=== PATIENT | female | born 1945 | race Caucasian/White ===

== ENCOUNTER 2020-10-22 04:13 | Inpatient (IN) | payer MEDICARE, SELFPAY ==
[2020-10-22] VITALS (13 sets, daily range): BP systolic 144–169; BP diastolic 86–93; PULSE 72–90; RESP 16–22; TEMP 36.5–37.2; O2SAT 92–95; BMI 25.8
--- NOTE | 2020-10-22 | DI.RAD.S_ITS ---
PROCEDURE: XR GASTROGRAFIN CHALLENGE COMPARISON: [facility], CT, CT ABDOMEN PELVIS W CON, 10/22/2020, 4:38. CT abdomen/pelvis 10/22/20. INDICATIONS: SBO/diagnostic versus therapeutic FINDINGS: Water-soluble oral contrast was administered, and has transited through the small bowel into the colon. Excreted iodinated contrast is also present within the bladder, from CT scanning earlier same day. IMPRESSION: A complete small bowel obstruction is not seen. Please refer to the dedicated CT scanning report from earlier same day, which identifies evidence of carcinoid tumor. Dictated by: Mukund Quinones M.D. on 10/22/2020 at 15:00 Approved by: Mukund Quinones M.D. on 10/22/2020 at 15:02
--- NOTE | 2020-10-22 04:31 | DI.CT.S_ITS ---
PROCEDURE: CT ABDOMEN PELVIS W CON INDICATIONS: Left-sided abdominal pain TECHNIQUE: After the administration of intravenous contrast, axial sections acquired from the lung bases to the pubic symphysis. Coronal and sagittal reformats were performed. For radiation dose reduction, the following was used: automated exposure control, adjustment of mA and/or kV according to patient size. COMPARISON: None. FINDINGS: Image quality: Excellent. Lung bases: Unremarkable except for mild dependent atelectasis. Heart: No significant findings. ABDOMEN: Liver: The liver overall is unremarkable but there is a single hyperenhancing lesion involving the left lateral hepatic segment, measuring 1.1 cm in maximal diameter, and with asymmetric mild enlargement of the segmental hepatic artery leading to this structure. The appearance is not diagnostic of hemangioma. Atypical hemangioma could produce this appearance, however.. Gallbladder: 1.9 cm gallstone. No associated inflammation or biliary obstruction. Biliary ducts: Unremarkable. Pancreas: Unremarkable. Spleen: Unremarkable. Adrenal Glands: Unremarkable. Kidneys and Ureters: Unremarkable. Stomach and Bowel: Stomach and colon are unremarkable. The small bowel, however, shows an obstructive pattern with dilatation above 3 cm maximal diameter, the upper limits of normal for small bowel. This pattern extends from the abdomen into the pelvis. Please see below for discussion of etiology. Peritoneum: No abnormal intraperitoneal free air. There is, however, moderate ascites scattered within the peritoneal space in the [place] splenic and pre hepatic upper abdomen, within the pericolic gutters, and within the deep pelvis. No loculated fluid collection is found that would suggest abscess formation. Note is made of a mesenteric mass at the abdomen/pelvis junction containing calcification deep within the mesentery below the level of the bifurcation of the aorta. This is best seen centered on series 2, image 63. Mild adenopathy comprised of mildly enlarged and hyperenhancing nodes are seen above the level of the calcified mass, which measures up to 2.1 x 1.9 cm. The adjacent abnormal lymph nodes measure up to 1.4 cm. Note is made of a subtle but definite mass within the small bowel immediately posterior to the lower margin of the calcified mass, where a hyperenhancing lesion is present within the lumen, measuring up to 1.8 x 1.7 cm and representing the point of transition from small-bowel dilatation to relative collapse. Ventral Wall: No hernias. Abdominal Nodes: No retroperitoneal or mesenteric adenopathy by size criteria. Vessels: Aorta and inferior vena cava are normal in size. PELVIS: Pelvic Organs: Unremarkable. Bladder: Unremarkable. Pelvic Nodes: No enlarged lymph nodes. Miscellaneous: No evidence of peritoneal carcinomatosis... Bones: Unremarkable. IMPRESSION: 1. The findings discussed above are diagnostic of carcinoid tumor as the obstructive etiology for small bowel dilatation above the level of the mass within the small bowel loops noted as the point of transition from dilated to collapsed small bowel. 2. Metastatic adenopathy is present at the root of the small bowel mesentery anterior to the enteric mass, containing a small amount of calcification and with characteristic cicatrization of the immediate adjacent mesenteric vessels, producing a relative corrugated pattern of vessels at the mesentery involved. 3. Early adenopathy extends cephalad above the calcified mass, mild in overall severity but definite. The lymph nodes show no fatty hilum, and are hyperenhancing. 4. There is a hyperenhancing rounded mass within the left lateral hepatic segment, conceivably an atypical hemangioma but worrisome for representing a single identifiable hepatic metastatic lesion. Evaluating this mass with targeted single organ ultrasound is recommended. Further assessment by dedicated nuclear medicine scan with SPECT imaging may be warranted. Note: Findings discussed immediately with the consulting surgeon caring for the patient. Dictated by: Mukund Quinones M.D. on 10/22/2020 at 10:50 Approved by: Mukund Quinones M.D. on 10/22/2020 at 11:35
--- NOTE | 2020-10-22 04:33 | ED.GENADULT ---
HPI - General Adult General Chief complaint: Abdominal Pain Stated complaint: ABD Pain Time Seen by Provider: 10/22/20 04:24 Source: patient and EMS Mode of arrival: EMS History of Present Illness HPI narrative: Patient is a 75-year-old female here for evaluation of approximately 3 days of generalized abdominal discomfort. She has also had some nausea and some dry heaving last evening. No fevers. She denies any urinary symptoms. States she has had smaller stools than normal over the past couple days. She has not tried anything for the symptoms prior to arrival. She has had these exact same symptoms off and on over the past several years. Has never been evaluated for them in the past. Has been told that she has a ulcer. She is not on any medications for this. Her prior episodes of this discomfort have a really only lasted overnight and then have completely resolved however the discomfort that she is having now has been consistent for the past couple days. She could not sleep last evening because of the discomfort Related Data Allergies Allergy/AdvReac Type Severity Reaction Status Date / Time No Known Drug Allergies Allergy Verified 10/22/20 05:08 Review of Systems Constitutional Constitutional: Reports system reviewed and no additional complaints, except as documented Cardiovascular Cardiovascular: Reports system reviewed and no additional complaints, except as documented Respiratory Respiratory: Reports system reviewed and no additional complaints, except as documented Gastrointestinal Gastrointestinal: Reports as per HPI Genitourinary Genitourinary: Reports system reviewed and no additional complaints, except as documented Musculoskeletal Musculoskeletal: Reports system reviewed and no additional complaints, except as documented Integumentary/Breasts Skin/Breast: Reports system reviewed and no additional complaints, except as documented Neurologic Neurologic: Reports system reviewed and no additional complaints, except as documented Hematologic/Lymphatic On Anticoagulants: No Allergic/Immunologic Allergic/Immunologic: Reports system reviewed and no additional complaints, except as documented Patient History Medical History History of ectopic Hypertension Stomach ulcer Surgical History History of hysterectomy Hx of appendectomy Social History Smoking Status: Never smoker Smoking Status: Never smoker alcohol intake frequency: a few times a month Substance Use Type: does not use Exam Initial Vital Signs Initial Vital Signs: Vital Signs Temperature 98.4 F 10/22/20 04:10 Pulse Rate 86 10/22/20 04:10 Respiratory Rate 20 10/22/20 04:10 Blood Pressure 169/91 H 10/22/20 04:10 Pulse Oximetry 95 10/22/20 04:10 Const General: cooperative and healthy appearing [facility] Head: normal to inspection and normocephalic Eyes General: appearance normal, both eyes and all related structures Resp Effort & Inspection: normal respiratory effort Auscultation: clear to auscultation bilaterally Cardio Rate: regular rate Rhythm: regular rhythm GI Inspection: normal to inspection Palpation: soft, No firm and tender (Generalized tenderness) Skin General: no rashes or lesions noted Neuro General: patient alert, patient awake, patient oriented x3 and moves all extremities Extrem General: normal to inspection, capillary refill normal and No edema Psych Appearance: grossly normal and well kempt Course Orders Ordered: ED Orders 10/22/20 04:31 CT abdomen pelvis w con Stat 10/22/20 04:39 Complete Blood Count AUTO DIFF Stat Comprehensive Metabolic Panel Stat Lipase Stat 10/22/20 05:55 COVID19 - ADMIT (PRODUCTION CONTROL SCHEDULER swab/PCR) Stat Sodium Chloride (Normal Saline 0.9%) 1,000 mls @ 125 mls/hr IV CONT UMA Discontinued Medications Sodium Chloride (Normal Saline 0.9%) 1,000 mls @ 1,000 mls/hr IV BOLUS ONE Stop: 10/22/20 05:30 Last Admin: 10/22/20 04:53 Dose: 1,000 mls/hr Documented by: LAWANDA Vital Signs Vital signs: Vital Signs - 8 hr 10/22/20 04:10 Temperature 98.4 F Pulse Rate 86 Respiratory Rate 20 Blood Pressure 169/91 H Pulse Oximetry 95 Medical Decision Making Lab Data Lab results reviewed: Yes I reviewed the patient's lab results. Result diagrams: 10/22/20 04:39 10/22/20 04:39 Labs: Lab Results 10/22/20 10/22/20 Range/Units 04:39 04:39 WBC 7.5 (4.5-11.0) X10^3/uL RBC 4.82 (4.0-5.2) X10^6/uL Hgb 15.2 (12.0-16.0) g/dL Hct 45.9 (36-46) % MCV 95.2 (80-100) fL MCH 31.6 (26-34) PG MCHC 33.1 (30-36) % RDW 13.4 (11.6-14.8) % Plt Count 225 (150-400) X10^3/uL Neut % (Auto) 75.9 H (50-75) % Lymph % (Auto) 13.6 L (25-40) % [place] % (Auto) 9.5 (3-14) % Eos % (Auto) 0.3 L (2-4) % Baso % (Auto) 0.7 (0-2) % Neut # (Auto) 5700 (1482-0277) /uL Lymph # (Auto) 1000 L (7222-3560) /uL [place] # (Auto) 700 (0-900) /uL Eos # (Auto) 0 (0-450) /uL Baso # (Auto) 100 (0-100) /uL Sodium 136 L (137-145) mmol/L Potassium 3.9 (3.4-5.1) mmol/L Chloride 103 (98-107) mmol/L Carbon Dioxide 25 (22-32) mmol/L BUN 11 (7-17) mg/dL Creatinine 0.53 (0.52-1.04) mg/dL Estimated GFR > 60.0 (>60) mL/min BUN/Creatinine Ratio 20.8 (6-22) Glucose 133 H (80-110) mg/dL Calcium 9.3 (8.4-10.2) mg/dL Total Bilirubin 0.9 (0.2-1.3) mg/dL AST 54 H (14-36) IU/L ALT 53 H (<35) IU/L Alkaline Phosphatase 88 (38-126) U/L Total Protein 7.5 (6.3-8.2) g/dL Albumin 4.1 (3.5-5.0) g/dL Globulin 3.4 (1.7-4.1) g/dL Albumin/Globulin Ratio 1.2 (1.0-2.8) Lipase 55 (23-300) U/L Imaging Data CT scan - abdomen/pelvis: Radiologist's Impression: Findings suggest a distal small-bowel obstruction with transition to decompressed distal small bowel in the right lower quadrant. Central mesentery nodular lesion with central calcification and adjacent mildly enlarged mesenteric lymph nodes. 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 Cholelithiasis Small volume ascites MDM Narrative Medical decision making narrative: Patient states she has had very similar symptoms multiple times in the past however they have been very short-lived. The symptoms she is having now have been going on for the past 4 days. Some nausea but no vomiting. She denied nausea medicine and pain medication upon arrival. Labs unremarkable. CT scan does show small bowel obstruction. Discussed the case with Dr. Bartholomew with General surgery who will admit the patient for further evaluation and treatment. I did discuss the findings of the CT scan with the patient. She expressed understanding and agreement. Discharge Plan Departure Patient Disposition: Admitted As Inpatient Clinical Impression: Small bowel obstruction
[2020-10-22 04:48] LABS: Add Manual Diff / Slide Review NO; Basophils Absolute Auto 100 /uL (0-100); Basophils Percent Auto 0.7 % (0-2); Eosinophils Absolute Auto 0 /uL (0-450); Eosinophils Percent Auto 0.3 % (2-4); Hematocrit 45.9 % (36-46); Hemoglobin 15.2 g/dL (12.0-16.0); Lymphocytes Absolute Auto 1000 /uL (1100-4500); Lymphocytes Percent Auto 13.6 % (25-40); Mean Corpuscular HGB Conc 33.1 % (30-36); Mean Corpuscular Hemoglobin 31.6 PG (26-34); Mean Corpuscular Volume 95.2 fL (80-100); Monocytes Absolute Auto 700 /uL (0-900); Monocytes Percent Auto 9.5 % (3-14); Neutrophils Absolute Auto 5700 /uL (1500-7000); Neutrophils Percent Auto 75.9 % (50-75); Platelet Count 225 X10^3/uL (150-400); Red Blood Cell Count 4.82 X10^6/uL (4.0-5.2); Red Cell Distribution Width 13.4 % (11.6-14.8); White Blood Cell Count 7.5 X10^3/uL (4.5-11.0)
[2020-10-22] MEDS: SODIUM CHLORIDE 0.9% 1,000 ML 1000 ML IV (04:53)
[2020-10-22 04:57] LABS: Alanine Aminotransferase 53 IU/L (<35); Albumin 4.1 g/dL (3.5-5.0); Albumin Globulin Ratio 1.2 (1.0-2.8); Alkaline Phosphatase 88 U/L (38-126); Aspartate Aminotransferase 54 IU/L (14-36); BUN Creatinine Ratio 20.8 (6-22); Bilirubin Total 0.9 mg/dL (0.2-1.3); Blood Urea Nitrogen 11 mg/dL (7-17); Calcium 9.3 mg/dL (8.4-10.2); Carbon Dioxide 25 mmol/L (22-32); Chloride 103 mmol/L (98-107); Estimated Glomerular Filt Rate > 60.0 mL/min (>60); Globulin 3.4 g/dL (1.7-4.1); Glucose 133 mg/dL (80-110); HEMOLYSIS < 15 (0-50); Lipase 55 U/L (23-300); Potassium 3.9 mmol/L (3.4-5.1); Sodium 136 mmol/L (137-145); Total Protein 7.5 g/dL (6.3-8.2)
[2020-10-22 06:52] LABS: COVID19 - ADMIT (NP swab/PCR) Negative (Negative)
[2020-10-22] MEDS: SODIUM CHLORIDE 0.9% 1,000 ML 125 ML IV (07:00)
[2020-10-22] MEDS: LACTATED RINGERS 500 ML 1000 ML IV (09:36)
--- NOTE | 2020-10-22 12:21 | CM.IDA ---
Addendum entered by COSME Garcia 10/22/20 15:00: Now scheduled for an ex lap with bowel resection to remove identified tumor. Will continue to follow closely for needs. Original Note: Initial DCP Assessment Note Pt is a 75 yo female, resident of [place], arrives w/persistent abd pain, results of the CT of the abd./pelvis w/contrast today appear as likely a carcinoid tumor with possible metastatic process per report. PCP: Not listed Payer: [employer] Reviewed chart, met w/patient at bedside, introduced role. Patient indp and active at baseline, states she lives alone, but does live on the same property as her brother, he can help transport patient home upon DC and can stay to assist patient as needed once home. No needs expected from DC planning team although will remain available in case this changes today. Plan is likely DC home w/close outpatient f/u COSME Garcia Discharge Planning/Care Management CM Discharge Assessment Start: 10/22/20 12:16 Freq: Status: Active Protocol: Document 10/22/20 12:16 JOSE (Rec: 10/22/20 12:21 JOSE [id number]) Discharge Planning Assessment Assigned Marketing Rotation Associate COSME Washington DPOA/Assigned Designee Name brother [place] Contact Information [phone] Advance Directives? Yes Advance Directives on File No History Provided By Patient Prior Living Arrangements Mobile home Comment Lives on the same property as her brother Household Members none Type of transporation used prior to Drives own vehicle admit Independent with ADL's Yes Is patient alert and oriented? Yes Barriers to Discharge No Discharge Plan Home Transportation Arrangement Family Referrals Initiated None needed Additional Comment Close outpatient f/u Whiteboard Updated in Patient Room with Yes name and ext. # of Marketing Rotation Associate
--- NOTE | 2020-10-22 12:35 | P.HP_ITS ---
History of Present Illness History of Present Illness Date Patient Seen: 10/22/20 Time Patient Seen: 08:45 Date of Onset of Symptoms: 10/18/20 Chief complaint: ABD Pain Narrative: The patient is a woman with long history of intermittent abdominal pain. It is a sharp pain that comes and goes. It usually resolves fairly quickly though at this episode it has not gone away for 4 days. It is not persistent. It seems to have a crampy nature at times. She has had dry heaves at the beginning of the problem. She has had no significant p.o. intake for 4 days. She has not been hungry. Patient History Medical History History of ectopic Hypertension Stomach ulcer Surgical History History of hysterectomy Hx of appendectomy Family & Social History Social History: household members none Prior Living Arrangements Mobile home Safety & Behavioral: Feels Safe in Current Yes Environment Been Physically Hurt or No Threatened By a Person Suicidal Ideation Description None Suicide Plan Description No Plan Tobacco & Substance use: Smoking Status Never smoker alcohol intake current alcohol intake frequency 0-2 drinks per day Substance Use Type does not use Meds Home Medications and Allergies Home Medications Medication Instructions Recorded Confirmed Type metoprolol tartrate 25 mg tablet 25 mg PO DAILY 10/22/20 10/22/20 History Allergies Allergy/AdvReac Type Severity Reaction Status Date / Time No Known Drug Allergies Allergy Verified 10/22/20 05:08 Review of Systems Review of Systems Narrative: Patient has no visual difficulties double vision pain arise earaches or sore throats. No tooth aches or trouble swallowing. No cough cold or asthma. No chest pain or heart problems. No black or bloody bowel movements. She has had a colonoscopy he recently. She has a family history of an a.m. with colon cancer. Thus she gets colonoscopies every 5 years. No seizures or blackouts. No anxiety or depression. No unusual bruising or bleeding. Recently moved here from [place]. Exam Vital Signs (past 8 hours): - 10/22/20 05:00 10/22/20 05:30 10/22/20 06:00 Temperature Pulse Rate 80 83 82 Respiratory Rate Blood Pressure 160/86 H Pulse Oximetry 92 93 93 10/22/20 06:25 Temperature 98.2 F Pulse Rate 88 Respiratory Rate 20 Blood Pressure 149/91 H Pulse Oximetry 95 Oxygen Delivery Method Room Air Oxygen Flow Rate 0 Narrative Exam Narrative: Cooperative in no apparent distress. Eyes are nonicteric. Pupils small reactive and equal. Oral mucosa is dry no open lesions. Teeth are intact. No nodes felt in the neck or supraclavicular areas. Trachea is midline mobile. Thyroid isn't enlarged. Lungs are clear to auscultation without rales or rhonchi. Equal percussion. Heart regular rate and rhythm without murmur gallop. Pulses 2+ at the wrist. Abdomen is distended with scarring noted from her prior operations. No ventral hernias appreciated. She has some mild tenderness on the left abdomen more compared to the right. Patient is alert and oriented. Speech rate and content are appropriate. Affect is appropriate. Objective Imaging CT scan - abdomen: My impression: CT reviewed. Patient appears to have a lesion in the liver and a small bowel obstruction. Radiologist's impression: Similar to the above. Labs Result Diagrams: 10/22/20 04:39 10/22/20 04:39 Labs: Laboratory Results - last 24 hr 10/22/20 10/22/20 10/22/20 04:39 04:39 05:55 WBC 7.5 RBC 4.82 Hgb 15.2 Hct 45.9 MCV 95.2 MCH 31.6 MCHC 33.1 RDW 13.4 Plt Count 225 Neut % (Auto) 75.9 H Lymph % (Auto) 13.6 L [place] % (Auto) 9.5 Eos % (Auto) 0.3 L Baso % (Auto) 0.7 Neut # (Auto) 5700 Lymph # (Auto) 1000 L [place] # (Auto) 700 Eos # (Auto) 0 Baso # (Auto) 100 Sodium 136 L Potassium 3.9 Chloride 103 Carbon Dioxide 25 BUN 11 Creatinine 0.53 Estimated GFR > 60.0 BUN/Creatinine Ratio 20.8 Glucose 133 H Calcium 9.3 Total Bilirubin 0.9 AST 54 H ALT 53 H Alkaline Phosphatase 88 Total Protein 7.5 Albumin 4.1 Globulin 3.4 Albumin/Globulin Ratio 1.2 Lipase 55 SARS-CoV-2 (PCR) Negative Assessment & Plan Assessment & Plan narrative: Patient appears to have a small-bowel obstruction. Will do a Gastrografin challenge to see if we can open this up. If not will require an operation. I should have an answer but this afternoon. Patient was made aware of my plan and all questions were answered. Addendum: After the above orders were written and the Gastrografin was given to the patient I was called by Dr. Quinones of Radiology. He reported that he thought that the patient's obstruction was tumor in the small bowel and probably a carcinoid based on the CT findings. He said they are very subtle but very convincing. I reviewed the films with him and agreed. Will proceed to the OR later today.
[2020-10-22] MEDS: DEXTROSE 5%-LACTATED RINGERS 1,000 ML 125 ML IV (16:25)
[2020-10-22] MEDS: FAMOTIDINE 20 MG/2 ML VIAL 40 MG IV (19:10)
[2020-10-22] MEDS: ENOXAPARIN 40 MG/0.4 ML SYRINGE SUBCUT (19:10)
[2020-10-22] MEDS: NEOMYCIN 500 MG TABLET 1000 MG PO ×2 (19:11→22:36)
[2020-10-22] MEDS: ERYTHROMYCIN BASE 250 MG TABLET 1000 MG PO ×2 (19:11→22:36)
[2020-10-23] VITALS (36 sets, daily range): BP systolic 90–145; BP diastolic 46–93; PULSE 41–79; RESP 10–30; TEMP 36.4–37.2; O2SAT 92–97
--- NOTE | 2020-10-23 | PATH_ITS ---
[facility] Accession Number: [id number] . 01 Material submitted: . small bowel - SMALL BOWEL MASS . 02 Diagnosis: Small Bowel, Mass, Resection: Well-differentiated neuroendocrine tumor. Please see case summary data below. . CANCER CASE SUMMARY: Procedure: Small bowel segmental resection. Tumor site: Small intestine, not otherwise specified. Histologic type and grade: G1, well-differentiated neuroendocrine tumor. Histologic grade determination: Mitotic rate: Less than 2 mitoses per 2 square millimeters. Ki-67 labeling index: Less than 3%. . Tumor size: Greatest dimension: 2.1 cm. Tumor focality: Unifocal. Tumor extent: Invades visceral peritoneum (serosa). Lymphovascular invasion: Present. Perineural invasion: Not identified. Large mesenteric masses (greater than 2 cm): Not identified. . Margins: All margins negative for tumor. Closest margin to tumor: Mesenteric, 0.5 mm. Distal and proximal margins are greater than 4 cm from tumor. Regional lymph nodes: Regional lymph nodes present. Number of lymph nodes with tumor: Zero. Number of lymph nodes examined: One. Distant metastasis: Not applicable. . Pathologic stage classification (AJCC 8th Edition): PT category: pT4. PN category: pN0. PM category: Not applicable. . Additional findings: 4 mesenteric tumor deposits less than 2cm are identified. [facility] 10/28/2020 1239 Local . 02 Comment: A thorough lymph node search was performed and multiple random blocks of adipose tissue were submitted. . 02 Electronically signed: . Trinity Chambers MD, Pathologist NPI- [id number] . 01 Gross description: . The specimen is received in formalin, labeled small bowel mass, and consists of an 18 cm in length by 3.5 cm in diameter portion of small intestine with two stapled margins. The serosa is keene-pink and smooth with a 2.5 x 0.1 cm area of stricture located 5.5 cm from the nearest stapled margin. There is a moderate amount of attached mesenteric adipose tissue. Opening reveals a 2.1 x 1.0 cm, firm, keene mass located 4.0 cm from the nearest stapled margin, in the area of stricture. Sectioning reveals a maximal thickness of 0.5 cm with no extension into the muscularis, coming to within 0.8 cm from the mesenteric margin (inked blue). The remaining mucosa at one end of the mass is keene-pink with normal mucosal folds, and at the opposing end is keene-pink and diffusely edematous. The circumference ranges from 2.5 cm in the area of stricture to 8.5 cm. The wall thickness measures 0.2 cm. Sectioning through the attached adipose tissue reveals keene-yellow lobulated cut surfaces with no lymph nodes identified. Clinical Staff Anesthesiologist sections are submitted. The specimen is re-reviewed and a few potential lymph node candidates are identified and submitted. . A1: Stapled margin closest to mass, indirect sales representative perpendicular sections (blue). A2: Stapled margin farthest from mass, indirect sales representative perpendicular sections (black). A3-A8: Mass, entirely submitted, full-thickness sections and mesenteric margin (A8). A9: Edematous small intestine. A10-A20: Clinical Staff Anesthesiologist adipose tissue. ([id number]) A21-A23: Lymph node candidates. /[facility] 10/27/2020 1535 Local . 02 Microscopic: . D2-40 immunohistochemical stain was performed on block A4 to evaluate for a lymphovascular invasion. D2-40 stains small lymphatics containing neoplastic cells consistent with lymphovascular invasion. The control stain showed appropriate reactivity. . Ki-67 stain was performed to evaluate for a proliferative index on block A6. The Ki-67 stain highlights less than 3% of cells positive. The control stain showed appropriate reactivity. . * This test was developed and its performance characteristics determined by [employer]. It has not been cleared or approved by the U.S. Food and Drug Administration. The FDA has determined that such clearance or approval is not necessary. This test is used for clinical purposes. It should not be regarded as investigational or for research. . 02 Pathologist provided ICD-10: D3A.019 . 02 CPT . 864906, J53749, 268199 Performed at: 01 [facility] [address] [id number] MD Marlon Mccoy MD Phone: [phone] Performed at: 02 [facility] [address] [place], [place] [id number] MD Trinity Chambers MD Phone: [phone]
[2020-10-23] MEDS: LORazepam 2 MG/ML INJ 0.5 MG IV (00:12)
[2020-10-23] MEDS: DEXTROSE 5%-LACTATED RINGERS 1,000 ML 125 ML IV (00:17)
--- NOTE | 2020-10-23 10:50 | CM.DPNOTE ---
DCP Note Patient's surgery now scheduled for this morning at 1100. Met w/patient this morning per her request, she requests that her brother Gabino is listed on her contact list for updates, patient gives staff permission to include brother Gabino and her son Omar in her medical care/planning. Following closely, will plan to reassess for DC needs s/p abd surgery JW
[2020-10-23] MEDS: FAMOTIDINE 20 MG/2 ML VIAL 40 MG IV (13:36)
[2020-10-23] MEDS: metroNIDAZOLE 500 MG/100 ML PIGGYBACK 100 MG IV (13:36)
[2020-10-23] MEDS: METOPROLOL IR 25 MG TABLET PO (13:36)
[2020-10-23] MEDS: CEFOTETAN 2 GM in SODIUM CHLORIDE 0.9% 100 ML 200 ML IV (14:14)
--- NOTE | 2020-10-23 14:32 | SUR.OPER ---
Supine on padded OR bed, head on pillow, arms secured on padded arm boards at <90 degrees abduction, legs uncrossed, safety belt at thigh, tape over blanket over lower legs.
--- NOTE | 2020-10-23 14:47 | P.PCN_ITS ---
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 Recent move to [facility]. Mets>4 PSH/Anesthesia history narrative: No previous issues with anesthesia: appy (during ex-lap), ectopic , hysterectomy, tubal ligation, left inguinal hernia repair, vein strippings. Exam narrative: MP1, normal dentition and range of motion RRR CTAB ASA Class: III (E) Labs: Hct 45.9 % (36-46) 10/22/20 04:39 Plt Count 225 X10^3/uL (150-400) 10/22/20 04:39 Medications: Current Medications Generic Name Dose Route Start Last Admin Trade Name Freq PRN Reason Stop Dose Admin Famotidine 40 mg 10/22/20 18:00 10/23/20 13:36 Famotidine 20 Mg/2 Ml Vial IV 40 mg DAILY@1800 UMA Administration Fentanyl 0 mcg 10/23/20 14:34 Fentanyl 100 Mcg/2 Ml Inj IV Q5M PRN Pain, Moderate (4-6) Dextrose/Lactated Ringer's 1,000 mls @ 125 mls/hr 10/22/20 15:15 10/23/20 00:17 Dextrose 5%-Lactated Ringers IV 125 mls/hr CONT UMA Administration Lactated Ringer's 1,000 mls @ 120 mls/hr 10/23/20 14:45 Lactated Ringers IV CONT UMA Lorazepam 0.5 mg 10/22/20 17:32 10/23/20 00:12 Lorazepam 2 Mg/Ml Inj IV 0.5 mg Q4HR PRN Administration Anxiety sleep Morphine Sulfate 2 mg 10/22/20 06:32 Morphine 2 Mg/Ml Inj IV Q4HR PRN pain Ondansetron HCl 4 mg 10/23/20 14:34 Ondansetron 4 Mg/2 Ml Inj IV NOW PRN Nausea And Vomiting Prochlorperazine 5 mg 10/22/20 17:33 Prochlorperazine 10 Mg/2 Ml Vial IV Q6HR PRN Nausea Allergies: Allergies Allergy/AdvReac Type Severity Reaction Status Date / Time No Known Drug Allergies Allergy Verified 10/22/20 05:08 Procedure Insertion date: 10/23/20 Insertion time: 13:59 Prep/Local: betadine x3 (chloroprep) and 1% lidocaine Interspace: T10-11 Patient position: sitting Needle: 18 gauge Barb[place]ead Loss of resistance with: saline (with air bubble) ALCON at (cm): 5 Catheter placed at SKIN (cm): 10 Catheter in SPACE (cm): 5 Insertion: No CSF, No Blood, No Paresthesia with insertion, No Paresthesia with injection and No Test dose reaction Initial Medications TEST DOSE time: 13:59 TEST DOSE: 1.5% lidocaine with epinephrine 1:200k (mL): 5 BOLUS DOSE time: 14:49 BOLUS DOSE (mL): 5 BOLUS DOSE med: 0.25% bupivacaine Infusion INFUSION: 0.125% bupivacaine and with fentanyl 2 mcg/mL Initial rate (mL/hr): 6 Post-procedure Anesthesia time START: 13:45 Anesthesia time END: 14:03 Post-procedure Anesthesia Assessment: Yes CV function: HR/BP stable, Yes Resp function: RR/sat/airway adequate, Yes Post-op hydration adequate, Yes Pain control adequate, Yes Nausea & vomiting absent, Yes Temperature > 36 C, Yes Mental status appropriate and No Anesthesia complications
--- NOTE | 2020-10-23 16:20 | P.OP_ITS ---
Operative Date/Time/Diagnoses Date of procedure: 10/23/20 Time of procedure: 16:20 Pre-op diagnosis: Small bowel obstruction secondary to tumor Post-op diagnosis: same Procedure & Clinicians Procedure: Exploratory laparotomy. Small bowel resection with primary [id number]-zd-[id number] anastomosis. Same procedure as scheduled: Yes Indications: Patient had a small bowel obstruction that improved with a Gastrografin challenge. It appeared on CT scan she had tumor causing this blockage and was taken to the operating room. Surgeon: Gordy Bartholomew Click Yes if Unassisted: Yes Anesthesia Type: General Operative Notes Findings: Tumor in the Rom[place] the mesentery involving the anti mesenteric edge of small bowel causing a near obstruction. This segment of bowel was resected but the tumor in the mesentery could not be without significant damage to intestinal blood supply. Closure Type: primary Specimen(s): other (Portion of small bowel) Prosthetic devices, grafts, tissues, transplants, or devices: None Estimated Blood Loss (mL): 20 Blood products transfused: none Procedure in detail: The patient was placed supine on the operating room table underwent general endotracheal anesthesia. She was prepped and draped in the usual fashion. The prior lower midline abdominal scar was excised in the incision carried into the peritoneal cavity under direct vision. Great care was taken not to injure any small bowel and none was injured. I readily identified the problem. I ran the small bowel proximal and distal to this region of tumor. Tumor involved the anti mesenteric border and appeared to progress into the mesentery. I did not find any other lesions on her near the small bowel. The liver was fairly smooth I could not feel anything on it. Right ovary was a little large but I chose not to do anything about that since it was clear I was not going to able to cure this patient with an operation because of the nature of her tumor. The left ovary felt a little smaller. There was no caking of the omentum were any mass there that I could feel or see. NICHOLAS was used to divide the small bowel proximal and distal to this obstructing lesion. I then divided the mesentery between clamps and tied with 2-0 silk ties. I was cutting through tumor at 1.3 to come across the mesentery as it was quite foreshortened in the region where the tumor involved the small bowel. Once the specimen was removed I opened it and I could not tell if the tumor originated in the small bowel or grew into it from the mesentery. I created a qrro-cs-iwcl anastomosis with stapling device and closed the end with a running 200 PDS and inverted this suture line with interrupted silk sutures. A portion of the hrjn-te-jjin anastomosis was also reinforced with occasional silk sutures. I attempted inverted the proximal small bile and bit it appeared to become somewhat discolored as time went on and I decided simply to through place a new staple line and not inverted. A GA was stapled across the bowel proximal to the in itial staple line it looked viable and intact as I completed the procedure. The mesenteric defect was quite small and I chose not to close it. The abdomen is irrigated and suctioned free of fluid. The fascia was closed a running 1. PDS and occasional abtgbs-nd-dzxxy 0 Vicryl sutures. The subQ was closed with 3-0 Vicryl after irrigating it. Skin was closed shelli. Dressing was applied. Patient was awakened extubated and taken to recovery room good condition. She had an epidural catheter placed at the beginning of the procedure and this will be managed postop by the anesthesia department. Complications: none Post-operative Condition: stable Disposition: PACU
[2020-10-23] MEDS: FENT 2MCG/ML BUPIV 0.125% EPI 200 MCG/100 ML PLAST..BAG 6 MCG EPIDURAL (17:00)
--- NOTE | 2020-10-23 17:16 | SUR.PHASEI ---
Addendum entered by Rosario Trejo R.N. 10/23/20 17:18: Epidural continuous infusion at 6ml/hr with very, very scant drainage to top of dressing. Original Note: Patient transfered to room 226 on bed with Camacho Rn on HR monitor with 2L oxygen NC. SBAR report update done at bedside with eval of dressings with RN. Bed locked. Rn at bedside.
[2020-10-23] MEDS: LACTATED RINGERS 1,000 ML 100 ML IV (17:22)
--- NOTE | 2020-10-23 18:18 | PC.NURSE ---
1700 Pt returned to rm 226 from PACU, awake and alert, epidural in progress @ 6ml/hr, dermatome level @ T4 bilaterally. MAEW, able to lift both legs normally. IV of LR initiated at 100ml/hr to LFA IV. Midline incision dressing dry and intact, ice pack to incision for comfort. Pt denies pain or discomfort. SPO2 94% on 2L NC, SCD's in place, Pt instucted in use of IS. Mercado cath to gravity drain with dark zuly urine, 30cc emptied on arrival. MRSA swab done and sent to lab. Call light within reach, bed in low and locked position.
--- NOTE | 2020-10-23 20:09 | PC.NURSE ---
2000 Pt dangled at bedside for 10minutes without difficulty, used IS, achieved 2500ml. Denies pain or discomfort. Stood and walked a few steps, no lightheadedness noted, postural BP did decrease from 125systolic to 103 systolic while standing. Returned to bed and positioned for comfort.
--- NOTE | 2020-10-23 22:45 | PC.NURSE ---
2235 Pt heart rate consistantly staying in the 40s - epidural dermatome level @ T4 bilaterally. Anesthesiologist notified re heart rate, instructed to turn the epidural off x 30 minutes then resume at lower rate (4ml/hr).
[2020-10-24] VITALS (13 sets, daily range): BP systolic 123–166; BP diastolic 57–74; PULSE 43–71; RESP 16–18; TEMP 36.1–36.7; O2SAT 93–98
[2020-10-24] MEDS: GLYCOPYRROLATE 0.4 MG/2 ML VIAL 0.2 MG IV ×2 (00:37→04:38)
[2020-10-24] MEDS: LACTATED RINGERS 1,000 ML 100 ML IV ×3 (03:05→22:40)
[2020-10-24 05:03] LABS: Add Manual Diff / Slide Review NO; Basophils Absolute Auto 100 /uL (0-100); Basophils Percent Auto 1.1 % (0-2); Eosinophils Absolute Auto 0 /uL (0-450); Hemoglobin 13.4 g/dL (12.0-16.0); Lymphocytes Absolute Auto 700 /uL (1100-4500); Lymphocytes Percent Auto 8.6 % (25-40); Mean Corpuscular HGB Conc 33.6 % (30-36); Mean Corpuscular Hemoglobin 32.3 PG (26-34); Mean Corpuscular Volume 96.2 fL (80-100); Monocytes Absolute Auto 300 /uL (0-900); Monocytes Percent Auto 4.1 % (3-14); Neutrophils Absolute Auto 7000 /uL (1500-7000); Neutrophils Percent Auto 86.2 % (50-75); Platelet Count 179 X10^3/uL (150-400); Red Blood Cell Count 4.16 X10^6/uL (4.0-5.2); Red Cell Distribution Width 13.2 % (11.6-14.8); White Blood Cell Count 8.1 X10^3/uL (4.5-11.0)
[2020-10-24 05:12] LABS: Alanine Aminotransferase 36 IU/L (<35); Albumin 3.3 g/dL (3.5-5.0); Albumin Globulin Ratio 1.1 (1.0-2.8); Alkaline Phosphatase 55 U/L (38-126); Aspartate Aminotransferase 39 IU/L (14-36); BUN Creatinine Ratio 22.9 (6-22); Bilirubin Total 0.5 mg/dL (0.2-1.3); Blood Urea Nitrogen 11 mg/dL (7-17); Carbon Dioxide 28 mmol/L (22-32); Chloride 108 mmol/L (98-107); Estimated Glomerular Filt Rate > 60.0 mL/min (>60); Glucose 128 mg/dL (80-110); HEMOLYSIS < 15 (0-50); Magnesium 1.8 mg/dL (1.6-2.3); Potassium 4.2 mmol/L (3.4-5.1); Sodium 140 mmol/L (137-145); Total Protein 6.3 g/dL (6.3-8.2)
--- NOTE | 2020-10-24 06:27 | PC.NURSE ---
Pt. denies pain, epidural infusing at 4ml/hr per Dr. Schafer's order. Pt. received 2 doses of Glycopyrrolate for reflex bradycardia. Pt. remains bradycardic but in the 50's, was 39-42 before Glycopyrrolate. Pt. is afebrile, B/P stable, Sats on 2L NC in the mid 90's, lungs CTA but slightly diminished on the bases, is able to pull up to 2000 ml on her IS. BT's very few tinkles mostly on the left quadrants, denies N/V, denies flatus. Mercado with 450 ml clear zuly urine output. Cont. to monitor and treat.
[2020-10-24] MEDS: FENT 2MCG/ML BUPIV 0.125% EPI 200 MCG/100 ML PLAST..BAG 4 MCG EPIDURAL (06:37)
--- NOTE | 2020-10-24 10:23 | P.PN_ITS ---
Subjective Subjective Interval history: POD#1 Exploratory laparotomy, small bowel resection with primary kapv-uh-mnef anastomosis by Dr Bartholomew. Pre-op thoracic epidural placed, running at 4mL/h. No pain meds given in addition to the epidural infusion. Pt denies pain. Bradycardia low 40's overnight, glycopyrrolate given x2, asymptomatic, gtt decreased from 6 to 4mL/h. Pain control maintained. Ambulating without difficulty, able to move, breath deeply, cough without pain. Exam Vital Signs (past 8 hours): - 10/24/20 04:23 10/24/20 05:00 10/24/20 07:51 Temperature 97.5 F L 97.6 F Pulse Rate 43 L Respiratory Rate 17 Blood Pressure 159/72 H Pulse Oximetry 96 95 10/24/20 08:00 Temperature Pulse Rate Respiratory Rate Blood Pressure Pulse Oximetry 98 Oxygen Delivery Method Nasal Cannula Oxygen Flow Rate 2 Narrative Exam Narrative: Aside from asymptomatic bradycardia, VSS, afebrile. Alert, comfortable, interactive, sitting in chair, moving easily without signs of pain or discomfort. Epidural site c/d/i, approx 11cm at skin, no pain, erythema at the site. Cold sensation diminished approximately T6-10 bilaterally, L > R. Objective Labs Result Diagrams: 10/24/20 04:45 10/24/20 04:45 Labs: Laboratory Results - last 24 hr 10/23/20 10/24/20 10/24/20 17:10 04:45 04:45 WBC 8.1 RBC 4.16 Hgb 13.4 Hct 40.0 MCV 96.2 MCH 32.3 MCHC 33.6 RDW 13.2 Plt Count 179 Neut % (Auto) 86.2 H Lymph % (Auto) 8.6 L Alexander % (Auto) 4.1 Eos % (Auto) 0.0 L Baso % (Auto) 1.1 Neut # (Auto) 7000 Lymph # (Auto) 700 L Alexander # (Auto) 300 Eos # (Auto) 0 Baso # (Auto) 100 Sodium 140 Potassium 4.2 Chloride 108 H Carbon Dioxide 28 BUN 11 Creatinine 0.48 L Estimated GFR > 60.0 BUN/Creatinine Ratio 22.9 H Glucose 128 H Calcium 9.0 Magnesium 1.8 Total Bilirubin 0.5 AST 39 H ALT 36 H Alkaline Phosphatase 55 Total Protein 6.3 Albumin 3.3 L Globulin 3.0 Albumin/Globulin Ratio 1.1 Nasal Screen MRSA (PCR) Negative for mrsa PFSH Medical History History of ectopic Hypertension Stomach ulcer Surgical History History of hysterectomy Hx of appendectomy Social History household members: none Smoking Status: Never smoker alcohol intake: current Assessment & Plan Assessment & Plan narrative: POD#1 ex lap/bowel resection with excellent pain control with bupiv/fent thoracic epidural at 4mL/h. Able to ambulate. Plan to continue epidural without change. Advised RN to notify anesthesia for HR<40 or symptomatic. Plan will be to give glycopyrrolate prn and/or decrease rate to 2mL/h. Will reassess and coordinate with surgery re: discontinuation of epidural.
[2020-10-24] MEDS: ENOXAPARIN 40 MG/0.4 ML SYRINGE SUBCUT (11:42)
--- NOTE | 2020-10-24 12:05 | PM.PN.1 ---
Subjective Subjective Date Patient Seen: 10/24/20 Time Patient Seen: 12:05 Interval history: ambulating, eager to be active in her recovery. Minimal pain, no flatus. Thorne cath in place as is epidural Exam Vital Signs (past 8 hours): - 10/24/20 04:23 10/24/20 05:00 10/24/20 07:51 Temperature 97.5 F L 97.6 F Pulse Rate 43 L Respiratory Rate 17 Blood Pressure 159/72 H Pulse Oximetry 96 95 10/24/20 08:00 10/24/20 11:54 Temperature 97.1 F L Pulse Rate 55 L Respiratory Rate 16 Blood Pressure 140/68 Pulse Oximetry 98 95 Oxygen Delivery Method Nasal Cannula Oxygen Flow Rate 0 Narrative Exam Narrative: abdomen is soft and flat. dressing intact. Const General: cooperative and comfortable Objective Labs Result Diagrams: 10/24/20 04:45 10/24/20 04:45 Labs: Laboratory Results - last 24 hr 10/23/20 10/24/20 10/24/20 17:10 04:45 04:45 WBC 8.1 RBC 4.16 Hgb 13.4 Hct 40.0 MCV 96.2 MCH 32.3 MCHC 33.6 RDW 13.2 Plt Count 179 Neut % (Auto) 86.2 H Lymph % (Auto) 8.6 L [place] % (Auto) 4.1 Eos % (Auto) 0.0 L Baso % (Auto) 1.1 Neut # (Auto) 7000 Lymph # (Auto) 700 L [place] # (Auto) 300 Eos # (Auto) 0 Baso # (Auto) 100 Sodium 140 Potassium 4.2 Chloride 108 H Carbon Dioxide 28 BUN 11 Creatinine 0.48 L Estimated GFR > 60.0 BUN/Creatinine Ratio 22.9 H Glucose 128 H Calcium 9.0 Magnesium 1.8 Total Bilirubin 0.5 AST 39 H ALT 36 H Alkaline Phosphatase 55 Total Protein 6.3 Albumin 3.3 L Globulin 3.0 Albumin/Globulin Ratio 1.1 Nasal Screen MRSA (PCR) Negative for mrsa [facility] Medical History History of ectopic Hypertension Stomach ulcer Surgical History History of hysterectomy Hx of appendectomy Social History household members: none Smoking Status: Never smoker alcohol intake: current Assessment & Plan Assessment & Plan narrative: Sips of clears until she passes gas. Epidural and thorne to remain another day. No complications detected at this time.
--- NOTE | 2020-10-24 12:33 | PC.NURSE ---
Addendum entered by Rey Vieira R.N. 10/24/20 14:10: Dr. Trevino called to get an update on the pt. Reported HR 50s-60s, SR on tele. Dr. Trevino gave verbal order to decrease epidural rate to 3 mls/hr and monitor pain control. Original Note: Called Dr. Valadez via phone. Requested clarification of orders for activity (order says bedrest). Reported pt would like indwelling catheter removed (spoke with Dr. Trevino on rounds, states block should not affect ability to urinate/relayed this to Dr. Valadez). Reported metoprolol held this AM for decreased HR. Orders received to ambulate as tolerated and remove catheter.
--- NOTE | 2020-10-24 14:21 | CM.DPNOTE ---
DCP Note Patient is POD#1 Exploratory laparotomy, small bowel resection with primary bpxk-fa-ukjn anastomosis by Dr Bartholomew. Mercado cath and epidural remain in place. Patient is ambulating the halls independently, eager to begin her recovery for eventual return home. Plan: DC home w/family is expected Following closely, patient likely to complete most of her outpatient f/u independently, or w/minimal assist from family, and will not require HH, can discuss w/patient closer to DC JW
[2020-10-24] MEDS: FENT 2MCG/ML BUPIV 0.125% EPI 200 MCG/100 ML PLAST..BAG 3 MCG EPIDURAL (15:22)
--- NOTE | 2020-10-24 19:49 | PC.NURSE ---
Pt ambulating in reyna this shift without difficulty. Denies pain or discomfort. Using IS and achieves 2500-3000ml, able to cough without pain. Up to the bathroom independently, voided 550 and had small amount of brown stool, no flatus at this time. IV infusing to LFA IV @ 100ml/hr. Taking clear liquids well without nausea.
--- NOTE | 2020-10-24 22:11 | PC.NURSE ---
Dr. Trevino called re pt status update, reported that pt is up and about independently, HR >50 and pain free. He said to encourage pt to use bolus PCEA for breakthrough pain and maintain continuous epidural @ 3ml/hr.
--- NOTE | 2020-10-24 23:16 | PC.NURSE ---
Cleared 70.6 ml on PCEA pump, new bag hang with 5 ml left in bag and wasted with Bonita, nurse coordinator. Pyxis is not allowing us to waste the 5 ml but for the whole vial. Initialized on 10/24/20 06:53 - END OF NOTE
[2020-10-25] VITALS (9 sets, daily range): BP systolic 146–152; BP diastolic 71–73; PULSE 63–75; RESP 16–18; TEMP 36.4–36.6; O2SAT 93–97
[2020-10-25] MEDS: LACTATED RINGERS 1,000 ML 100 ML IV (07:58)
[2020-10-25] MEDS: CELECOXIB 100 MG CAPSULE PO ×2 (10:54→21:08)
[2020-10-25] MEDS: METOPROLOL IR 25 MG TABLET PO (10:55)
--- NOTE | 2020-10-25 12:30 | PM.PN.1 ---
Subjective Subjective Date Patient Seen: 10/25/20 Time Patient Seen: 12:30 Interval history: Had BM last night, no nausea, no pain Exam Vital Signs (past 8 hours): - 10/25/20 07:45 10/25/20 08:00 Temperature 97.9 F Pulse Rate 75 Respiratory Rate 16 Blood Pressure 147/71 H Pulse Oximetry 97 95 Oxygen Delivery Method Room Air Oxygen Flow Rate 0 Const General: cooperative and comfortable Other: abdomin is flat and soft, dressing is dry. Objective Labs Result Diagrams: 10/24/20 04:45 10/24/20 04:45 [facility] Medical History History of ectopic Hypertension Stomach ulcer Surgical History History of hysterectomy Hx of appendectomy Social History household members: none Smoking Status: Never smoker alcohol intake: current Assessment & Plan Assessment & Plan narrative: tolerated clear liquids +BM Plan: saline lock IV, anesthesia to remove epidural, po pain meds. advance diet.
[2020-10-25] MEDS: ACETAMINOPHEN 325 MG TABLET PO ×2 (14:42→18:34)
--- NOTE | 2020-10-25 16:13 | CM.DPC ---
DCP Cont: Per MD, pt is ambulating independently and no nausea or pain and plan is to dc epidural and take po meds and advance her diet towards plan of possible d/c home tomorrow if medically stable. Per RN, pt ambulates in the halls independently still and in room. No concerns at this time. Plan: SW to follow closely for possible d/c home tomorrow with outpt follow up if medically stable and if pt able to tolerate po pain meds and diet. COSME Rose
[2020-10-25] MEDS: ENOXAPARIN 40 MG/0.4 ML SYRINGE SUBCUT (18:33)
[2020-10-25] MEDS: GABAPENTIN 100 MG CAPSULE 200 MG PO (21:08)
[2020-10-25] MEDS: HYDROCODONE/ACET 5/325 TABLET 1 TAB PO (21:09)
[2020-10-26] VITALS: O2SAT 93
[2020-10-26] MEDS: HYDROCODONE/ACET 5/325 TABLET 1 TAB PO (02:32)
[2020-10-26 08:00] VITALS: BP 156/96; PULSE 77; RESP 18; TEMP 36.4; O2SAT 95; O2SAT 96
[2020-10-26] MEDS: METOPROLOL IR 25 MG TABLET PO (08:10)
[2020-10-26] MEDS: CELECOXIB 100 MG CAPSULE PO (08:10)
[2020-10-26] MEDS: ACETAMINOPHEN 325 MG TABLET PO (08:10)
--- NOTE | 2020-10-26 08:10 | PC.NURSE ---
Addendum entered by Fatou Chavarria R.N. 10/26/20 13:28: Patients abdominal dsg removed by , this RN re-dressed with xeroform, gauze and tegaderm. Patient tolerated. IV removed, tip intact, patient tolerated. Patient given discharge instructions regarding wound care, f/u appointment with [place], activity and diet. Patient verbalized understanding. Patient's belongings gathered, patient denies having items in pharmacy or safe. Addendum entered by Fatou Chavarria R.N. 10/26/20 10:14: Patient ambulating in halls at this time with no complications. Original Note: Patient ambulating independently in halls this AM. Reports intermittent abdominal pain, radiates to her back but decreasing in nature. BS active x 4, patient reports BM 10/25, liquid, has not been able to pass flatus since but feels gassy. Abdominal dressing CDI. Patient tolerating full liquid diet. VSS.
[2020-10-26 09:10] VITALS: O2SAT 95
[2020-10-26 11:45] VITALS: O2SAT 95
--- NOTE | 2020-10-26 13:01 | P.DS_ITS ---
History of Present Illness History of Present Illness Date Patient Seen: 10/26/20 Time Patient Seen: 13:01 Chief complaint: ABD Pain Discharge Providers Provider Date of admission: 10/22/20 06:31 Discharge Date: 10/26/20 Consults: 10/23/20 16:46 Consult to Discharge Planning Routine Comment: Discharge provider: Adriana Valadez MD Exam Vital Signs (past 8 hours): - 10/26/20 08:00 10/26/20 09:10 10/26/20 11:45 Temperature 97.5 F L Pulse Rate 77 Respiratory Rate 18 Blood Pressure 156/96 H Pulse Oximetry 96 95 95 Oxygen Delivery Method Room Air Oxygen Flow Rate 0 Const General: cooperative and comfortable Orientation: alert and oriented x3 GI Other: abdomen slightly distended, non tender. Ilana in place Objective Labs Result Diagrams: 10/24/20 04:45 10/24/20 04:45 [facility] Medical History History of ectopic Hypertension Stomach ulcer Surgical History History of hysterectomy Hx of appendectomy Social History household members: none Smoking Status: Never smoker alcohol intake: current Discharge Assessment & Plan Assessment and Plan Assessment: S/p small bowel resection for tumor in the mesentery. Pathology is not back. Having bowel movements and comfortable with eating, walking, and pain control Plan of Treatment: Discharge home with follow up 2 weeks. No lifting greater than 15 lbs for 4 weeks. Discharge Plan Discharge Plan Patient Disposition: Home Provider Discharge Comment: walk every day. Discharge orders & Medications Prescriptions: New acetaminophen 325 mg Tablet 325 mg PO Q6HR PRN (Reason: Fever/Mild Pain (1-3)) Qty: 60 RF: 0 gabapentin 100 mg Capsule 200 mg PO BEDTIME Qty: 10 RF: 0 celecoxib [Celebrex] 100 mg Capsule 100 mg PO BID Qty: 20 RF: 0 Continued metoprolol tartrate 25 mg tablet 25 mg PO DAILY RF: 0 Follow up/Referrals: Gordy Bartholomew MD [Physician] - 2 Weeks (go over path and remove ilana) Diet/Activity/Treatments Diet: Diet as Tolerated Skin/Wound/Dressing Care Report to your healthcare provider any signs of infection, such as:: increased pain, unusual drainage and unusual redness Visit Report/Discharge Packet Stand Alone Forms: Surgery Discharge
== END 2020-10-26 14:06 | disposition home or self-care (01) | DRG 827 ==
LOC: ED 06:29 → AC 06:32 → ICU 10-23 17:51 → AC 10-26 11:08 → ICU 10-26 11:08
PROVIDERS: Admitting Provider Specialist; Emergency Provider Emergency Medicine; Referring Provider Emergency Medicine; Visit Provider Specialist
PROC: 0DB80ZZ Excision of Small Intestine, Open Approach (ICD-10-PCS; CPT 49000; principal; 2020-10-23 13:00)
DX: C7A.8 Other malignant neuroendocrine tumors (principal); K56.609 Unspecified intestinal obstruction, unspecified as to partial versus complete obstruction; C7B.8 Other secondary neuroendocrine tumors; Z20.822 Contact with and (suspected) exposure to COVID-19
CPT/HCPCS: 36415; 36592; 44160; 74018; 74177; 80053; 83690; 83735; 85025; 87635; 87797; 94760; 96360; 96361; 99222; 99284; C9803; A9270; J0330; J1100; J1650; J2060; J2405; J2704; J3010; J7121; Q9967

== ENCOUNTER → 2021-03-22 11:08 | Outpatient (CLI) | payer MEDICARE, SELFPAY ==
[2020-11-20 15:28] VITALS: BMI 25.8
--- NOTE | 2021-03-22 11:09 | DI.RAD.S_ITS ---
PROCEDURE: XR ANKLE LT MIN 3V INDICATIONS: L lateral ankle pain, inversion injury TECHNIQUE: 3 views of the ankle were acquired. COMPARISON: [facility], CR, XR FOOT LT MIN 3V, 03/22/2021, 11:08. FINDINGS: Bones: There is a moderately displaced distal fibular fracture seen at the level of the syndesmosis. There is intra-articular involvement seen. No definite syndesmotic injury is seen. The ankle mortise is believed to be minimally widened. No additional fractures are detected. The talar dome demonstrates no ila abnormality. Age-appropriate bony degenerative changes are seen. A plantar calcaneal spur is seen. Soft tissues: Soft tissue swelling is seen, particularly laterally. IMPRESSION: Moderately displaced distal fibular fracture, with intra-articular involvement. The ankle mortise is believed to be minimally widened. Dictated by: Omar Everett M.D. on 03/22/2021 at 10:30 Approved by: Omar Everett M.D. on 03/22/2021 at 10:31
--- NOTE | 2021-03-22 11:09 | DI.RAD.S_ITS ---
PROCEDURE: XR FOOT LT MIN 3V INDICATIONS: L lateral ankle pain, inversion injury TECHNIQUE: 3 views of the foot were acquired. COMPARISON: [facility], CR, XR ANKLE LT MIN 3V, 03/22/2021, 11:08. FINDINGS: Bones: There is a moderately displaced distal fibular fracture seen. No fractures of the bones of the foot can be seen. Mild hallux valgus deformity is seen, with associated focal degenerative change of the 1st metatarsophalangeal joint. Milder degenerative changes are seen elsewhere. Incidental note is made of a bipartite medial sesamoid bone. Incidental note is made of an accessory ossicle, a faintly seen os peroneum. Plantar and Achilles calcaneal spurs are seen. Soft tissues: There is soft tissue swelling seen proximally. IMPRESSION: Distal fibular fracture. No fractures of the bones of the foot can be seen. Mild hallux valgus deformity, with associated degenerative changes. Dictated by: Omar Everett M.D. on 03/22/2021 at 10:32 Approved by: Omar Everett M.D. on 03/22/2021 at 10:34
== END ==
PROVIDERS: PCP Internal Medicine; Referring Provider Physician Assistant; Visit Provider Physician Assistant
DX: S82.832A Other fracture of upper and lower end of left fibula, initial encounter for closed fracture (principal); M20.12 Hallux valgus (acquired), left foot; X58.XXXA Exposure to other specified factors, initial encounter
CPT/HCPCS: 73610; 73630

== ENCOUNTER 2021-07-11 14:25 | Emergency (ER) | payer MEDICARE, SELFPAY ==
[2020-11-20 15:28] VITALS: BMI 25.8
[2021-07-11 14:31] VITALS: BP 191/86; PULSE 64; RESP 18; TEMP 36.6; O2SAT 97; BMI 26.6
--- NOTE | 2021-07-11 15:16 | ED_ITS ---
HPI - Extremity Problem General Chief complaint: Extremity Problem,Nontraumatic Stated complaint: Right ankle blood clot x5 days Time Seen by Provider: 07/11/21 15:15 Source: patient Mode of arrival: Ambulatory History of Present Illness HPI Narrative: 76-year-old woman with history of hypertension with a recent left lower extremity injury for which she was wearing a walking boot that was removed on the . She has been able to walk with the boot in place and has not had problems with the right ankle. Within 48 hours of having a walking boot off and increasing her overall walking time, she is now up to 2-3 miles, she was noticin g some tenderness and swelling to the posterior portion of the lateral right ankle. She was seen in the walk-in clinic with blood work done with apparently a slightly elevated D-dimer appreciated. She was called by the walk-in clinic provider and told that her D-dimer was at 900 and she needed to be seen in an emergency department for further evaluation. She comes in 36 hours later with no complaints of tachypnea, chest pain, palpitations, swelling in her calf for tenderness in her calf. She does have some mild erythema over the right lateral malleolus with tenderness in posterior talofibular ligaments. Related Data Home Medications Medication Instructions Recorded Confirmed metoprolol tartrate 25 mg tablet 25 mg PO DAILY 10/22/20 11/05/20 Previous Rx's Medication Instructions Recorded acetaminophen 325 mg tablet 325 mg PO Q6HR PRN #60 tab 10/26/20 celecoxib 100 mg capsule (Celebrex) 100 mg PO BID #20 cap 10/26/20 gabapentin 100 mg capsule 200 mg PO BEDTIME #10 cap 10/26/20 Allergies Allergy/AdvReac Type Severity Reaction Status Date / Time No Known Drug Allergies Allergy Verified 11/05/20 11:25 Review of Systems Review of Systems Narrative: Remainder of complete review of systems is otherwise unremarkable except for that included in the HPI. Patient History Medical History History of ectopic Hypertension Stomach ulcer Surgical History History of hysterectomy Hx of appendectomy Social History household members: none Smoking Status: Never smoker alcohol intake: current Smoking Status: Never smoker alcohol intake frequency: 0-2 drinks per day Substance Use Type: does not use Exam Initial Vital Signs Initial Vital Signs: Vital Signs Temperature 97.9 F 07/11/21 14:31 Pulse Rate 64 07/11/21 14:31 Respiratory Rate 18 07/11/21 14:31 Blood Pressure 191/86 H 07/11/21 14:31 Pulse Oximetry 97 07/11/21 14:31 General: Healthy appearing, in no acute distress. Able to give a complete and coherent history. Well-nourished well-developed HEENT: Moist mucous membranes, normal sclera with reactive pupils, Respiratory: Lungs are clear to auscultation, no wheezing no rales no rhonchi. Full and symmetrical air movement Cardiac: Regular rate and rhyth, no contacted cardia, no murmurs no bruits Skin: Warm and dry, she has multiple ecchymoses in various stages of healing over her shins Neurologic: Grossly neurologically intact with no obvious asymmetries or abnormalities Extremities: well perfused, she has some minor swelling right lateral posterior malleolus with tenderness along the talofibular ligament. Range of motion at the ankle joint is unremarkable and non tender. She has no calf swelling and no calf tenderness appreciated. Psych: Cooperative, appropriate insight and affect Procedures Orthopedic Splinting/Casting RIght Ankle: Time of procedure: 15:58 Side: right Lower Extremity Injury Location: ankle Lower Extremity Immobilizer: stirrup splint Post splinting neuro exam: intact Post splinting vascular exam: intact Placed by: Provider Course Vital Signs Vital signs: Vital Signs - 8 hr 07/11/21 14:31 Temperature 97.9 F Pulse Rate 64 Respiratory Rate 18 Blood Pressure 191/86 H Pulse Oximetry 97 MDM - Extremity (Nontraumatic) MDM Narrative Medical decision making narrative: 76-year-old woman who had a left ankle injury walking boot was removed and she is in the process of moving. She has been doing quite a bit more activity has been rearranging furniture to explain the multiple bruises over her shins and with the increased volume of walking over the past 48 hours she has noticed some minor tenderness in the right lateral ankle consistent with an ankle sprain. There is no ecchymosis. She does not have asymmetric swelling in the lower extremities and has no signs or symptoms of pulmonary embolism. I suspect the slightly elevated D-dimer noted in the walk-in clinic is related to the multiple small bruises over her shins and does not represent a DVT. On clinical exam there is no suggestion of DVT nor pulmonary emboli. Most likely explanation for her pain at this time is a mild ankle sprain secondary to shift and mechanics getting out of the walking boot in the left leg and increased activity with work of moving as well as increased mobility now that the left walking splint has been removed. At this time she is placed in an air stirrup splint with significant relief of her pain and she is safe for discharge home. Discharge Plan Departure Patient Disposition: Home Clinical Impression: Right ankle sprain Instructions: DI for Ankle Sprain Activity Restrictions/Additional Instructions: Thank you for coming in today Your ankle is swollen tender over 1 of the external ankle stabilizing ligaments and I suspect that is the cause of both the pain and the swelling. Clinically, you have no signs or symptoms of a deep venous thrombosis. The elevated D-dimer that was appreciated on the is likely related to the multiple small bruises that you have over your shins from all of the furniture rearranging you have been doing. When corrected for age, that number is only minimally elevated. Based on your clinical exam with no evidence of a blood clot in your leg nor of a blood clot in your lungs I do not think that additional ultrasound imaging is required today. I do think that an ankle stirrup splint is going to be helpful in controlling both the pain in the swelling in your right ankle. I would suggest that you continue wearing your compression socks. You can keep the foot elevated if it is swollen. Using 400 mg of ibuprofen (2 [id number] pills) and 1 Tylenol every 6 hours can be very helpful in controlling pain. I would recommend going for your usual walk and participating in your usual activities. If you find that you are sore after the activity, that would be the appropriate time to use the ibuprofen and Tylenol. I hope you continue to heal quickly. Prescriptions: No Action metoprolol tartrate 25 mg tablet 25 mg PO DAILY 0RF acetaminophen 325 mg Tablet 325 mg PO Q6HR PRN (Reason: Fever/Mild Pain (1-3)) Qty: 60 0RF gabapentin 100 mg Capsule 200 mg PO BEDTIME Qty: 10 0RF celecoxib [Celebrex] 100 mg Capsule 100 mg PO BID Qty: 20 0RF Referrals: David Daly MD [Primary Care Provider] -
--- NOTE | 2021-07-11 15:23 | PC.NURSE ---
Patient reports that she went to the [facility] on 07/09 for ankle pain and swelling that started Monday afternoon. Was called late Monday for an elevated D-dimer greater than 900 and told to go into the emergency room. Patient reports there was no injury, she is not on a blood thinner and this has never occurred before. Patient is appreciably tendered to palpation behind bony ankle prominence but does not appear to be significantly more swollen than right ankle, is not warmer or cooler to the touch. Patient reports that she broke the right ankle in February so it's not a good comparison. Tylenol has been helping for the pain, positive pulse in left dorsalis pedis.
[2021-07-11 15:28] VITALS: O2SAT 96
[2021-07-11 15:29] VITALS: BP 164/81; PULSE 57; O2SAT 95
[2021-07-11 15:30] VITALS: BP 163/82; PULSE 58; O2SAT 94
== END 2021-07-11 16:08 | disposition home or self-care (01) ==
PROVIDERS: Emergency Provider Emergency Medicine; PCP Internal Medicine
DX: S93.401A Sprain of unspecified ligament of right ankle, initial encounter (principal); R79.1 Abnormal coagulation profile; X50.9XXA Other and unspecified overexertion or strenuous movements or postures, initial encounter
CPT/HCPCS: 99281; 99282

== ENCOUNTER 2022-01-29 11:32 | Emergency (ER) | payer MEDICARE, SELFPAY ==
[2020-11-20 15:28] VITALS: BMI 25.8
[2022-01-29] VITALS (11 sets, daily range): BP systolic 138–203; BP diastolic 73–107; PULSE 64–79; RESP 19–38; TEMP 37; O2SAT 95–97; BMI 25.8
--- NOTE | 2022-01-29 11:41 | DI.RAD.S_ITS ---
PROCEDURE: XR CHEST 1V INDICATIONS: chest pain TECHNIQUE: One view of the chest was acquired. COMPARISON: None. FINDINGS: Surgical changes and devices: None. Lungs and pleura: An incomplete inspiratory result is noted, causing a crowded appearance to the lung markings. No focal infiltrates are seen. No pneumothorax or significant pleural effusions are seen. Mediastinum: Mediastinal contours appear normal. Heart size is normal. Bones and chest wall: No suspicious bony lesions. Overlying soft tissues appear unremarkable. IMPRESSION: Limited portable chest examination, without a significant cardiopulmonary abnormality identified. Dictated by: Omar Everett M.D. on 01/29/2022 at 11:35 Approved by: Omar Everett M.D. on 01/29/2022 at 11:36
[2022-01-29 11:47] LABS: Add Manual Diff / Slide Review NO; Basophils Absolute Auto 100 /uL (0-100); Basophils Percent Auto 1.3 % (0-2); Eosinophils Absolute Auto 0 /uL (0-450); Eosinophils Percent Auto 0.8 % (2-4); Hematocrit 40.3 % (36-46); Hemoglobin 13.7 g/dL (12.0-16.0); Lymphocytes Absolute Auto 2000 /uL (1100-4500); Lymphocytes Percent Auto 44.4 % (25-40); Mean Corpuscular Hemoglobin 31.9 PG (26-34); Mean Corpuscular Volume 93.9 fL (80-100); Monocytes Absolute Auto 400 /uL (0-900); Monocytes Percent Auto 8.5 % (3-14); Neutrophils Absolute Auto 2000 /uL (1500-7000); Platelet Count 198 X10^3/uL (150-400); Red Blood Cell Count 4.29 X10^6/uL (4.0-5.2); Red Cell Distribution Width 13.4 % (11.6-14.8); White Blood Cell Count 4.5 X10^3/uL (4.5-11.0)
--- NOTE | 2022-01-29 11:48 | PC.NURSE ---
Patient reports intermittent episodes of dizziness and twinges of chest pain lasting up to 5 minutes at 5/10 for the last month. Episodes have been off and on throughout each day. Today seen at walk in clinic [facility], sent here via EMS. EMS had one EKG that showed A.fib at 73bpm and hypertension of 220systolic. This resolved back to sinus rhythm with a normal BP.
[2022-01-29 12:01] LABS: Prothrombin Time 11.2 SECONDS (10.1-12.7)
[2022-01-29 12:04] LABS: PTT Partial Thromboplastin Tim 29 SECONDS (26-36)
[2022-01-29 12:07] LABS: Alanine Aminotransferase 41 IU/L (<35); Albumin 4.3 g/dL (3.5-5.0); Albumin Globulin Ratio 1.2 (1.0-2.8); Alkaline Phosphatase 63 U/L (38-126); Aspartate Aminotransferase 41 IU/L (14-36); Bilirubin Total 0.5 mg/dL (0.2-1.3); Blood Urea Nitrogen 12 mg/dL (7-17); Carbon Dioxide 25 mmol/L (22-32); Chloride 107 mmol/L (98-107); Creatine Kinase 50 U/L (30-135); Estimated Glomerular Filt Rate > 60 mL/min (>60); Globulin 3.6 g/dL (1.7-4.1); Glucose 131 mg/dL (80-110); HEMOLYSIS < 15 (0-50); Lipase 74 U/L (23-300); Magnesium 2.1 mg/dL (1.6-2.3); Sodium 142 mmol/L (137-145); Total Protein 7.9 g/dL (6.3-8.2)
[2022-01-29 12:18] LABS: Troponin I < 0.012 ng/mL (0.01-0.034)
--- NOTE | 2022-01-29 13:11 | ED.CHESTPAIN ---
HPI - Chest Pain <JULISSA Ruffin - Last Filed: 01/29/22 16:08> General Chief Complaint: Chest Pain Stated Complaint: 1 month of dizziness and chest pressure Time Seen by Provider: 01/29/22 12:15 Source: patient Mode of arrival: EMS Limitations: no limitations History of Present Illness HPI narrative: This is a 76-year-old female who presents to the emergency department complaining of 1 dizziness, states that over the last month she is had 3 episodes of midsternal chest pressure, states that 2 these episodes have work her up at night. She states that she has a history of anxiety, does not take anything for it, is currently on 40 mg of telmisartan for her hypertension, states that she is had increased dizziness with position changes of her head especially when she inverts her head. She states her dizziness is exacerbated by quick head turns, denies any symptoms associated with the chest pressure like food, burning, She denies any other symptoms like palpitations, shortness of breath, lightheadedness, dizziness associated with this. She denies any dysuria, urinary frequency or urgency Related Data Home Medications Medication Instructions Recorded Confirmed metoprolol tartrate 25 mg tablet 25 mg PO DAILY 10/22/20 11/05/20 Previous Rx's Medication Instructions Recorded acetaminophen 325 mg tablet 325 mg PO Q6HR PRN Fever/Mild Pain 10/26/20 (1-3) #60 tabs celecoxib 100 mg capsule (Celebrex) 100 mg PO BID #20 caps 10/26/20 gabapentin 100 mg capsule 200 mg PO BEDTIME #10 caps 10/26/20 metoprolol succinate 25 mg 25 mg PO DAILY #30 tabs 01/29/22 tablet,extended release 24 hr Allergies Allergy/AdvReac Type Severity Reaction Status Date / Time No Known Drug Allergies Allergy Verified 01/29/22 11:39 Review of Systems <JULISSA Ruffin - Last Filed: 01/29/22 16:08> Review of Systems Narrative: Review of systems is negative for acute abnormalities unless otherwise noted in HPI Patient History <JULISSA uRffin - Last Filed: 01/29/22 16:08> Medical History History of ectopic Hypertension Stomach ulcer Surgical History History of hysterectomy Hx of appendectomy Social History household members: none Smoking Status: Never smoker alcohol intake: current Smoking Status: Never smoker alcohol intake frequency: 0-2 drinks per day Substance Use Type: does not use Exam <JULISSA Ruffin - Last Filed: 01/29/22 16:08> Narrative Exam Narrative: Reviewed vitals signs and nursing notes. General: cooperative, comfortable, in no acute distress, well groomed HEENT: symmetrical facial expressions, moist mucous membranes Cardiovascular: regular rate and rhythm, S1-S2, hypertensive to 190 systolic, without murmur no peripheral edema, warm extremities Respiratory: normal effort, able to speak in complete sentences, without wheezing, stridor, or abnormal breath sounds. No retractions or tachypnea. GI: abdomen soft, nontender to palpation, nondistended, without masses, rebound tenderness or exquisite tenderness with exam. MSK: moves all extremities, neurovascularly intact, no weakness, normal tone Skin: brisk capillary refill, without pallor or erythema Neuro: normal speech and cognition, A&O x3, ambulatory, clear speech Psych: mental status is grossly normal, congruent mood, normal affect, pleasant and cooperative Initial Vital Signs Initial Vital Signs: Vital Signs Temperature 98.6 F 01/29/22 11:31 Pulse Rate 66 01/29/22 11:31 Respiratory Rate 23 01/29/22 11:31 Blood Pressure 185/83 H 01/29/22 11:31 Pulse Oximetry 96 01/29/22 11:31 Oxygen Delivery Method 01/29/22 11:31 <Lynn Segovia MD - Last Filed: 01/30/22 18:32> Initial Vital Signs Initial Vital Signs: Vital Signs Temperature 98.6 F 01/29/22 11:31 Pulse Rate 66 01/29/22 11:31 Respiratory Rate 23 01/29/22 11:31 Blood Pressure 185/83 H 01/29/22 11:31 Pulse Oximetry 96 01/29/22 11:31 Oxygen Delivery Method 01/29/22 11:31 Scores <JULISSA Ruffin - Last Filed: 01/29/22 16:08> HEART Score Heart Score history: Slightly Suspicious Heart Score EKG: Normal Heart Score Age: > or = 65 years old Heart Score risk factors: 1-2 risk factors Heart Score troponin: < or = to normal limit Heart Score Total: 3 <Lynn Segovia MD - Last Filed: 01/30/22 18:32> HEART Score Heart Score Total: 3 Course <JULISSA Ruffin - Last Filed: 01/29/22 16:08> Orders Ordered: Discontinued Medications Metoprolol Succinate (Metoprolol Er 25 Mg Tablet) 25 mg PO NOW ONE Stop: 01/29/22 13:34 Last Admin: 01/29/22 13:45 Dose: 25 mg Documented By: DON Metoprolol Tartrate (Metoprolol Ir 25 Mg Tablet) 25 mg PO NOW ONE Stop: 01/29/22 13:30 Last Admin: 01/29/22 13:34 Dose: Not Given Documented By: DON Consultations Consultation #1: Dr Daly's nurse baby aspirin, restart metoprolol Time: 13:40 Vital Signs Vital signs: Vital Signs - 8 hr 01/29/22 11:31 01/29/22 11:38 01/29/22 11:39 Temperature 98.6 F Pulse Rate 66 67 64 Respiratory Rate 23 33 H 21 Blood Pressure 185/83 H Pulse Oximetry 96 95 96 Oxygen Delivery Method Room Air 01/29/22 11:39 01/29/22 12:00 01/29/22 12:01 Temperature Pulse Rate 65 Respiratory Rate 20 Blood Pressure 185/83 H 180/82 H Pulse Oximetry 95 Oxygen Delivery Method 01/29/22 12:01 01/29/22 12:30 01/29/22 12:31 Temperature Pulse Rate 69 72 Respiratory Rate 24 30 H Blood Pressure 203/96 H Pulse Oximetry 96 95 Oxygen Delivery Method 01/29/22 12:31 01/29/22 13:00 01/29/22 13:01 Temperature Pulse Rate 76 69 Respiratory Rate 38 H 27 H Blood Pressure 158/73 H Pulse Oximetry 97 96 Oxygen Delivery Method 01/29/22 13:01 01/29/22 13:45 01/29/22 13:59 Temperature Pulse Rate 70 79 76 Respiratory Rate 19 Blood Pressure 138/97 H 148/107 H Pulse Oximetry 96 95 Oxygen Delivery Method Room Air <Lynn Segovia MD - Last Filed: 01/30/22 18:32> Orders Ordered: Discontinued Medications Metoprolol Succinate (Metoprolol Er 25 Mg Tablet) 25 mg PO NOW ONE Stop: 01/29/22 13:34 Last Admin: 01/29/22 13:45 Dose: 25 mg Documented By: DON Metoprolol Tartrate (Metoprolol Ir 25 Mg Tablet) 25 mg PO NOW ONE Stop: 01/29/22 13:30 Last Admin: 01/29/22 13:34 Dose: Not Given Documented By: DON Vital Signs Vital signs: Vital Signs - 8 hr 01/29/22 11:31 01/29/22 11:38 01/29/22 11:39 Temperature 98.6 F Pulse Rate 66 67 64 Respiratory Rate 23 33 H 21 Blood Pressure 185/83 H Pulse Oximetry 96 95 96 Oxygen Delivery Method Room Air 01/29/22 11:39 01/29/22 12:00 01/29/22 12:01 Temperature Pulse Rate 65 Respiratory Rate 20 Blood Pressure 185/83 H 180/82 H Pulse Oximetry 95 Oxygen Delivery Method 01/29/22 12:01 01/29/22 12:30 01/29/22 12:31 Temperature Pulse Rate 69 72 Respiratory Rate 24 30 H Blood Pressure 203/96 H Pulse Oximetry 96 95 Oxygen Delivery Method 01/29/22 12:31 01/29/22 13:00 01/29/22 13:01 Temperature Pulse Rate 76 69 Respiratory Rate 38 H 27 H Blood Pressure 158/73 H Pulse Oximetry 97 96 Oxygen Delivery Method 01/29/22 13:01 01/29/22 13:45 01/29/22 13:59 Temperature Pulse Rate 70 79 76 Respiratory Rate 19 Blood Pressure 138/97 H 148/107 H Pulse Oximetry 96 95 Oxygen Delivery Method Room Air MDM - Chest Pain <JULISSA Ruffin - Last Filed: 01/29/22 16:08> Lab Data Result diagrams: 01/29/22 11:40 01/29/22 11:40 Labs: Lab Results 01/29/22 01/29/22 01/29/22 Range/Units 11:40 11:40 11:40 WBC 4.5 (4.5-11.0) X10^3/uL RBC 4.29 (4.0-5.2) X10^6/uL Hgb 13.7 (12.0-16.0) g/dL Hct 40.3 (36-46) % MCV 93.9 (80-100) fL MCH 31.9 (26-34) PG MCHC 34.0 (30-36) % RDW 13.4 (11.6-14.8) % Plt Count 198 (150-400) X10^3/uL Neut % (Auto) 45.0 L (50-75) % Lymph % (Auto) 44.4 H (25-40) % [place] % (Auto) 8.5 (3-14) % Eos % (Auto) 0.8 L (2-4) % Baso % (Auto) 1.3 (0-2) % Neut # (Auto) 2000 (1862-2195) /uL Lymph # (Auto) 2000 (3437-3276) /uL [place] # (Auto) 400 (0-900) /uL Eos # (Auto) 0 (0-450) /uL Baso # (Auto) 100 (0-100) /uL PT 11.2 (10.1-12.7) SECONDS INR 1.0 (0.9-1.3) APTT 29 (26-36) SECONDS Sodium 142 (137-145) mmol/L Potassium 4.0 (3.4-5.1) mmol/L Chloride 107 (98-107) mmol/L Carbon Dioxide 25 (22-32) mmol/L BUN 12 (7-17) mg/dL Creatinine 0.48 L (0.52-1.04) mg/dL Estimated GFR > 60 (>60) mL/min BUN/Creatinine Ratio 25.0 H (6-22) Glucose 131 H (80-110) mg/dL Calcium 9.0 (8.4-10.2) mg/dL Magnesium 2.1 (1.6-2.3) mg/dL Total Bilirubin 0.5 (0.2-1.3) mg/dL AST 41 H (14-36) IU/L ALT 41 H (<35) IU/L Alkaline Phosphatase 63 (38-126) U/L Total Creatine Kinase 50 (30-135) U/L CK-MB (CK-2) TNP CK-MB (CK-2) Rel Index TNP Troponin I < 0.012 (0.01-0.034) ng/mL NT-Pro-B Natriuret Pep (<125) pg/mL Total Protein 7.9 (6.3-8.2) g/dL Albumin 4.3 (3.5-5.0) g/dL Globulin 3.6 (1.7-4.1) g/dL Albumin/Globulin Ratio 1.2 (1.0-2.8) Lipase 74 (23-300) U/L 01/29/22 Range/Units 11:40 WBC (4.5-11.0) X10^3/uL RBC (4.0-5.2) X10^6/uL Hgb (12.0-16.0) g/dL Hct (36-46) % MCV (80-100) fL MCH (26-34) PG MCHC (30-36) % RDW (11.6-14.8) % Plt Count (150-400) X10^3/uL Neut % (Auto) (50-75) % Lymph % (Auto) (25-40) % [place] % (Auto) (3-14) % Eos % (Auto) (2-4) % Baso % (Auto) (0-2) % Neut # (Auto) (1770-8233) /uL Lymph # (Auto) (4784-1433) /uL [place] # (Auto) (0-900) /uL Eos # (Auto) (0-450) /uL Baso # (Auto) (0-100) /uL PT (10.1-12.7) SECONDS INR (0.9-1.3) APTT (26-36) SECONDS Sodium (137-145) mmol/L Potassium (3.4-5.1) mmol/L Chloride (98-107) mmol/L Carbon Dioxide (22-32) mmol/L BUN (7-17) mg/dL Creatinine (0.52-1.04) mg/dL Estimated GFR (>60) mL/min BUN/Creatinine Ratio (6-22) Glucose (80-110) mg/dL Calcium (8.4-10.2) mg/dL Magnesium (1.6-2.3) mg/dL Total Bilirubin (0.2-1.3) mg/dL AST (14-36) IU/L ALT (<35) IU/L Alkaline Phosphatase (38-126) U/L Total Creatine Kinase (30-135) U/L CK-MB (CK-2) CK-MB (CK-2) Rel Index Troponin I (0.01-0.034) ng/mL NT-Pro-B Natriuret Pep 153 H (<125) pg/mL Total Protein (6.3-8.2) g/dL Albumin (3.5-5.0) g/dL Globulin (1.7-4.1) g/dL Albumin/Globulin Ratio (1.0-2.8) Lipase (23-300) U/L Urine Dip Bedside Urine Glucose Negative Bedside Urine Bilirubin - Negative Bedside Urine Ketone - Negative Urine Specific [place] 1.010 Bedside Urine Occult Blood - Negative Bedside Urine pH 6.0 Bedside Urine Protein - Negative Bedside Urine Urobilinogen - Negative Bedside Urine Nitrite - Negative Bedside Urine Leukocytes - Negative Esterase Imaging Data Chest x-ray: Radiologist's Impression: PROCEDURE:? XR CHEST 1V ? INDICATIONS:? chest pain ? TECHNIQUE:? One view of the chest was acquired.? ? COMPARISON:? None. ? FINDINGS:? ? Surgical changes and devices:? None.? ? Lungs and pleura:? An incomplete inspiratory result is noted, causing a crowded appearance to the lung markings.? No focal infiltrates are seen.? No pneumothorax or significant pleural effusions are seen. ? ? Mediastinum:? Mediastinal contours appear normal.? Heart size is normal.? ? Bones and chest wall:? No suspicious bony lesions.? Overlying soft tissues appear unremarkable.? ? IMPRESSION:? ? Limited portable chest examination, without a significant cardiopulmonary abnormality identified.? ? ? Dictated by: Omar Everett M.D. on 01/29/2022 at 11:35 ? ? Approved by: Omar Everett M.D. on 01/29/2022 at 11:36 ? ECG Data Interpretation: EKG independently reviewed by myself at 1151 reveals normal sinus rhythm at 62 bpm with regular axis and intervals. No STEMI, ST segment changes, arrhythmia, or acute ischemic changes. Two of the EKGs taken by EMS on way to the emergency department show atrial fibrillation with irregular rate, 1 of them shows sinus rhythm with occasional PACs. No ST elevation on any of them. EMS EKGs were uploaded to medical records MDM Narrative Medical decision making narrative: This is a 76-year-old female presents to the emergency department with 1 month of dizziness, and occasional episodes of chest pain, 3 episodes in 1 month. She states that 2 of these episodes have woke her up at nighttime, 1 of them occurred today while she was making a bed, she felt dizziness, denies any urinary symptoms. Her urine dip was negative for leukocyte esterase, wbc's and blood. Two of the EKGs that were taken by EMS on her way to the emergency department show atrial fibrillation with an irregular rate, without ST changes. She is currently in normal sinus rhythm and has been on the monitor during her stay in the emergency department. She is not had an episode of dizziness like she has had at home she states. She received 324 mg of aspirin by EMS on the way to the emergency department, her lab work overall reassuring, no leukocytosis, anemia, electrolyte abnormalities, creatinine is 0.48, BNP is 153, troponin 0.012 chest x-ray shows no focal infiltrates, pneumothorax or pleural effusions. Patient was hypertensive in the emergency department, states that she takes telmisartan 40 mg daily, this was changed in August of 2021 by her current primary care provider, states that she used to take 25 mg of metoprolol daily and states that she felt better on that due to her anxiety history. She states that she wishes to go back onto that medication. I called Dr. Daly's office and spoke with his nurse who will relate to him that patient likely has had episodes of paroxysmal atrial fibrillation, I recommend starting 81 mg of aspirin daily, her heart score is 3. Recommend Zio patch, sooner follow-up than 02/07/2022 with primary care, possible stress test an outpatient testing as needed. Started patient on metoprolol XL daily in addition to her telmisartan, told her to check her blood pressure at least 1 time daily before and after medications 1 hour apart. Multiple causes of chest pain considered including DE, PE, pneumothorax, pneumonia, aortic dissection, and pleurisy. Patient reports no radiation, no diaphoresis, no provocation with exertion, and no vomiting Patient is appropriate and amenable to discharge home. Vital signs are stable on repeat examination is unremarkable. Patient has been informed of results. Patient has been given strict return to ER precautions for any new or worsening symptoms. Patient understands to follow up closely with outpatient providers as instructed. Patient understands plan and agrees to discharge home. All questions and concerns answered at this time. <Lynn Segovia MD - Last Filed: 01/30/22 18:32> Lab Data Labs: Lab Results 01/29/22 01/29/22 01/29/22 Range/Units 11:40 11:40 11:40 WBC 4.5 (4.5-11.0) X10^3/uL RBC 4.29 (4.0-5.2) X10^6/uL Hgb 13.7 (12.0-16.0) g/dL Hct 40.3 (36-46) % MCV 93.9 (80-100) fL MCH 31.9 (26-34) PG MCHC 34.0 (30-36) % RDW 13.4 (11.6-14.8) % Plt Count 198 (150-400) X10^3/uL Neut % (Auto) 45.0 L (50-75) % Lymph % (Auto) 44.4 H (25-40) % [place] % (Auto) 8.5 (3-14) % Eos % (Auto) 0.8 L (2-4) % Baso % (Auto) 1.3 (0-2) % Neut # (Auto) 2000 (6058-3831) /uL Lymph # (Auto) 2000 (8030-0993) /uL [place] # (Auto) 400 (0-900) /uL Eos # (Auto) 0 (0-450) /uL Baso # (Auto) 100 (0-100) /uL PT 11.2 (10.1-12.7) SECONDS INR 1.0 (0.9-1.3) APTT 29 (26-36) SECONDS Sodium 142 (137-145) mmol/L Potassium 4.0 (3.4-5.1) mmol/L Chloride 107 (98-107) mmol/L Carbon Dioxide 25 (22-32) mmol/L BUN 12 (7-17) mg/dL Creatinine 0.48 L (0.52-1.04) mg/dL Estimated GFR > 60 (>60) mL/min BUN/Creatinine Ratio 25.0 H (6-22) Glucose 131 H (80-110) mg/dL Calcium 9.0 (8.4-10.2) mg/dL Magnesium 2.1 (1.6-2.3) mg/dL Total Bilirubin 0.5 (0.2-1.3) mg/dL AST 41 H (14-36) IU/L ALT 41 H (<35) IU/L Alkaline Phosphatase 63 (38-126) U/L Total Creatine Kinase 50 (30-135) U/L CK-MB (CK-2) TNP CK-MB (CK-2) Rel Index TNP Troponin I < 0.012 (0.01-0.034) ng/mL NT-Pro-B Natriuret Pep (<125) pg/mL Total Protein 7.9 (6.3-8.2) g/dL Albumin 4.3 (3.5-5.0) g/dL Globulin 3.6 (1.7-4.1) g/dL Albumin/Globulin Ratio 1.2 (1.0-2.8) Lipase 74 (23-300) U/L 01/29/22 Range/Units 11:40 WBC (4.5-11.0) X10^3/uL RBC (4.0-5.2) X10^6/uL Hgb (12.0-16.0) g/dL Hct (36-46) % MCV (80-100) fL MCH (26-34) PG MCHC (30-36) % RDW (11.6-14.8) % Plt Count (150-400) X10^3/uL Neut % (Auto) (50-75) % Lymph % (Auto) (25-40) % [place] % (Auto) (3-14) % Eos % (Auto) (2-4) % Baso % (Auto) (0-2) % Neut # (Auto) (2633-1177) /uL Lymph # (Auto) (4495-7121) /uL [place] # (Auto) (0-900) /uL Eos # (Auto) (0-450) /uL Baso # (Auto) (0-100) /uL PT (10.1-12.7) SECONDS INR (0.9-1.3) APTT (26-36) SECONDS Sodium (137-145) mmol/L Potassium (3.4-5.1) mmol/L Chloride (98-107) mmol/L Carbon Dioxide (22-32) mmol/L BUN (7-17) mg/dL Creatinine (0.52-1.04) mg/dL Estimated GFR (>60) mL/min BUN/Creatinine Ratio (6-22) Glucose (80-110) mg/dL Calcium (8.4-10.2) mg/dL Magnesium (1.6-2.3) mg/dL Total Bilirubin (0.2-1.3) mg/dL AST (14-36) IU/L ALT (<35) IU/L Alkaline Phosphatase (38-126) U/L Total Creatine Kinase (30-135) U/L CK-MB (CK-2) CK-MB (CK-2) Rel Index Troponin I (0.01-0.034) ng/mL NT-Pro-B Natriuret Pep 153 H (<125) pg/mL Total Protein (6.3-8.2) g/dL Albumin (3.5-5.0) g/dL Globulin (1.7-4.1) g/dL Albumin/Globulin Ratio (1.0-2.8) Lipase (23-300) U/L Urine Dip Bedside Urine Glucose Negative Bedside Urine Bilirubin - Negative Bedside Urine Ketone - Negative Urine Specific [place] 1.010 Bedside Urine Occult Blood - Negative Bedside Urine pH 6.0 Bedside Urine Protein - Negative Bedside Urine Urobilinogen - Negative Bedside Urine Nitrite - Negative Bedside Urine Leukocytes - Negative Esterase Discharge Plan Departure Patient Disposition: Home Clinical Impression: Intermittent chest pain, Dizziness, Paroxysmal atrial fibrillation Hypertension Qualifiers: Hypertension type: unspecified Qualified Code(s): I10 - Essential (primary) hypertension Instructions: Atrial Fibrillation, Benign Paroxysmal Positional Vertigo, DI for Chest Pain, DI for Dizziness-Nonvertigo Activity Restrictions/Additional Instructions: *You have been diagnosed with chest pain, dizziness which might be related to positional vertigo or could be related to atrial fibrillation which it looks like was on your EKGs in ambulance. Please start taking 81 mg of aspirin daily, also called baby aspirin, and start taking metoprolol 25 mg in addition to your other blood pressure medications. Please follow-up with Dr. Daly, I called the office and they are going to try find a sooner appointment for you. They may be able to get a Zio patch which you can wear to monitor your heart rate and find out if atrial fibrillation is something that you are going in and out of. I hope that you start feeling better soon, please stay hydrated, we did not find any signs of heart strain or heart injury. Your urine does not appear infected either, thank you for your patience today and I am glad that you came in. *What to do: *Please continue to take your regular medications as directed. [ x] New medication prescriptions sent to your pharmacy: [[facility] [place] ] [ ] New medication written as a paper prescription [ ] No new medications given *Please follow up with your primary care provider in 2-3 days, call for an appointment. Let them know you were seen in the Emergency Department and that we asked that you be seen for follow-up. We will electronically transmit a record of today's note if your PCP is in our system *If you do not have a primary care provider please contact [phone] to establish care with one of [facility] primary care providers. *Return to Emergency Department if you should have any new, worsening, or concerning symptoms, such as [fever greater than 101F, chills, worsening pain, persistent vomiting or other bothersome symptoms]. Prescriptions: New metoprolol succinate 25 mg tablet extended release 24 hr 25 mg PO DAILY Qty: 30 0RF No Action metoprolol tartrate 25 mg tablet 25 mg PO DAILY acetaminophen 325 mg Tablet 325 mg PO Q6HR PRN (Reason: Fever/Mild Pain (1-3)) Qty: 60 0RF gabapentin 100 mg Capsule 200 mg PO BEDTIME Qty: 10 0RF celecoxib [Celebrex] 100 mg Capsule 100 mg PO BID Qty: 20 0RF Referrals: David Daly MD [Primary Care Provider] - Visit Report Forms: Patient Portal/API <Lynn Segovia MD - Last Filed: 01/30/22 18:32> Cosign ED Attending Chanaature Attestation: I was immediately available in the department for consultation throughout this patient's visit. I agree with documentation as above. Lynn Segovia MD
[2022-01-29 13:14] LABS: NT-proBNP (BNP-Adult 18+) 153 pg/mL (<125)
[2022-01-29] MEDS: METOPROLOL ER 25 MG TABLET PO (13:45)
--- NOTE | 2022-01-31 12:08 | PC.NURSE ---
faxed ED Doc d/c summary to [facility] for continuity of care.
== END 2022-01-29 14:19 | disposition home or self-care (01) ==
PROVIDERS: Emergency Medicine; Emergency Provider Nurse Practitioner Critical Care Medicine; PCP Internal Medicine
DX: R07.9 Chest pain, unspecified (principal); R42 Dizziness and giddiness; I48.0 Paroxysmal atrial fibrillation; I10 Essential (primary) hypertension; Z79.899 Other long term (current) drug therapy
CPT/HCPCS: 71045; 80053; 81003; 82550; 83690; 83735; 83880; 84484; 85025; 85610; 85730; 93005; 99284

== ENCOUNTER 2022-02-17 10:02 | Emergency (ER) | payer MEDICARE, SELFPAY ==
[2020-11-20 15:28] VITALS: BMI 25.8
[2022-02-17] VITALS (18 sets, daily range): BP systolic 141–214; BP diastolic 68–108; PULSE 50–67; RESP 15–21; TEMP 36.6; O2SAT 92–97; BMI 25.8
--- NOTE | 2022-02-17 10:11 | DI.RAD.S_ITS ---
PROCEDURE: XR CHEST 1V INDICATIONS: chest pain TECHNIQUE: One view of the chest was acquired. COMPARISON: [facility], CR, XR CHEST 1V, 01/29/2022, 11:52. FINDINGS: Surgical changes and devices: Pacer device. Lungs and pleura: Lungs are clear. No pleural effusions or pneumothorax. Mediastinum: Mediastinal contours appear normal. Heart size is mildly enlarged. Bones and chest wall: No suspicious bony lesions. Overlying soft tissues appear unremarkable. IMPRESSION: No acute pulmonary process. Dictated by: Tamara Burgess M.D. on 02/17/2022 at 10:47 Approved by: Tamara Burgess M.D. on 02/17/2022 at 10:47
[2022-02-17 10:30] LABS: Add Manual Diff / Slide Review NO; Basophils Absolute Auto 0 /uL (0-100); Eosinophils Absolute Auto 0 /uL (0-450); Hematocrit 41.3 % (36-46); Hemoglobin 13.7 g/dL (12.0-16.0); Lymphocytes Absolute Auto 1800 /uL (1100-4500); Lymphocytes Percent Auto 37.1 % (25-40); Mean Corpuscular HGB Conc 33.1 % (30-36); Mean Corpuscular Hemoglobin 31.5 PG (26-34); Mean Corpuscular Volume 95.2 fL (80-100); Monocytes Absolute Auto 500 /uL (0-900); Neutrophils Absolute Auto 2500 /uL (1500-7000); Neutrophils Percent Auto 50.9 % (50-75); Platelet Count 206 X10^3/uL (150-400); Red Blood Cell Count 4.34 X10^6/uL (4.0-5.2); Red Cell Distribution Width 13.4 % (11.6-14.8); White Blood Cell Count 4.8 X10^3/uL (4.5-11.0)
[2022-02-17 10:39] LABS: Prothrombin Time 10.9 SECONDS (10.1-12.7)
[2022-02-17 10:41] LABS: PTT Partial Thromboplastin Tim 30 SECONDS (26-36)
[2022-02-17 10:46] LABS: Alanine Aminotransferase 52 IU/L (<35); Albumin 4.4 g/dL (3.5-5.0); Albumin Globulin Ratio 1.2 (1.0-2.8); Alkaline Phosphatase 73 U/L (38-126); Aspartate Aminotransferase 53 IU/L (14-36); BUN Creatinine Ratio 29.5 (6-22); Bilirubin Total 0.8 mg/dL (0.2-1.3); Blood Urea Nitrogen 13 mg/dL (7-17); Carbon Dioxide 28 mmol/L (22-32); Chloride 104 mmol/L (98-107); Creatine Kinase 43 U/L (30-135); Estimated Glomerular Filt Rate > 60 mL/min (>60); Globulin 3.6 g/dL (1.7-4.1); Glucose 124 mg/dL (80-110); HEMOLYSIS < 15 (0-50); Lipase 69 U/L (23-300); Potassium 3.7 mmol/L (3.4-5.1); Sodium 143 mmol/L (137-145)
[2022-02-17 10:58] LABS: Troponin I < 0.012 ng/mL (0.01-0.034)
--- NOTE | 2022-02-17 12:45 | PC.NURSE ---
Pt reports feeling anxious, states she is normally an anxious person. 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 Ray.
--- NOTE | 2022-02-17 13:49 | ED.CHESTPAIN ---
HPI - Chest Pain General Chief Complaint: Chest Pain Stated Complaint: chest pain high BP Lt arm fell asleep Time Seen by Provider: 02/17/22 12:03 Source: patient Mode of arrival: Ambulatory Limitations: no limitations Limitations: no limitations History of Present Illness HPI narrative: This is a 76-year-old female with known hypertension, neuroendocrine cancer with recurrent episodes of chest pain/pressure. Patient had an episode today that lasted about 15 minutes radiated towards her back, her left arm. It resolved on its own. She states her blood pressure was quite elevated and was elevated upon arrival here. Patient states she was not short of breath, no diaphoresis, no nausea or vomiting. No new swelling in her extremities. She has not had any syncope. She is had some dizziness and lightheadedness at times but not during her episodes of chest pressure. She states she is had 4 episodes she was seen here, then admitted to [facility] where she was admitted had stroke workup including carotid ultrasound, MRI brain, stress testing for her heart and an echo which showed a slightly thickened tyson which he was told could be from persistent hypertension. She states they changed her medications they increased her losartan to twice daily and stopped her triamterene and added metoprolol. She is on lab side injections for her neuroendocrine cancer which she follows Dr. Borrego for Oncology and an aspirin daily. No statins. She states they did not do a cardiac catheterization while she was there she is unsure if they checked urine or plasma metanephrines. She states she was discharged on the 03 of February her blood pressures for 117/78 initially been slowly increasing over time and averaging more 180s over 90s since arrival the past couple days. Related Data Home Medications Medication Instructions Recorded Confirmed metoprolol tartrate 25 mg tablet 25 mg PO DAILY 10/22/20 11/05/20 Previous Rx's Medication Instructions Recorded acetaminophen 325 mg tablet 325 mg PO Q6HR PRN Fever/Mild Pain 10/26/20 (1-3) #60 tabs celecoxib 100 mg capsule (Celebrex) 100 mg PO BID #20 caps 10/26/20 gabapentin 100 mg capsule 200 mg PO BEDTIME #10 caps 10/26/20 metoprolol succinate 25 mg 25 mg PO DAILY #30 tabs 01/29/22 tablet,extended release 24 hr amlodipine 5 mg tablet 5 mg PO DAILY #30 tabs 02/17/22 Allergies Allergy/AdvReac Type Severity Reaction Status Date / Time No Known Drug Allergies Allergy Verified 01/29/22 11:39 Review of Systems Review of Systems ROS Unobtainable: All systems reviewed & are unremarkable except as noted in HPI and below Patient History Medical History History of ectopic Hypertension Stomach ulcer Surgical History History of hysterectomy Hx of appendectomy Social History household members: none Smoking Status: Never smoker alcohol intake: current Smoking Status: Never smoker alcohol intake frequency: holidays/special occasions only Substance Use Type: does not use Exam Narrative Exam Narrative: GENERAL: Alert and oriented x three, female in mild distress. HEENT: Head normocephalic, atraumatic, EOMI, pupils reactive, face symmetric, moist mucous membranes NECK: Supple, full range of motion CARDIOVASCULAR: Regular rate and rhythm without murmurs, rubs or gallops. RESPIRATORY: Breath sounds equal bilaterally, no wheezes rales or rhonchi. ABDOMEN: Soft, nontender. Normoactive bowel sounds all 4 quadrants. No guarding or rebound, rigidity, no mass : No CVA tenderness EXTREMITIES: Normal range of motion, no clubbing or edema. Neurovascularly intact NEUROLOGICAL: Cranial nerves II through XII grossly intact. Moving all extremities SKIN: Warm, dry, no petechiae, no rashes or lesions. Initial Vital Signs Initial Vital Signs: Vital Signs Temperature 97.8 F 02/17/22 10:08 Pulse Rate 67 02/17/22 10:08 Respiratory Rate 15 02/17/22 10:08 Blood Pressure 214/102 H 02/17/22 10:08 Pulse Oximetry 97 02/17/22 10:08 Oxygen Delivery Method 02/17/22 10:08 Course Orders Ordered: ED Orders 02/17/22 10:11 XR chest 1V Stat EKG-12 Lead Stat 02/17/22 10:26 Complete Blood Count AUTO DIFF Stat Comprehensive Metabolic Panel Stat Lipase Stat Magnesium Stat Partial Thromboplastin Time Stat Prothrombin Time INR Stat Troponin & CK Cardiac Panel Stat 02/17/22 13:23 EKG-12 Lead Stat 02/17/22 13:29 Trop I [Troponin I] Stat 02/17/22 14:30 Catecholamines, Ur, Free/Rando Stat 02/17/22 14:42 Miscellaneous to [facility] Stat 02/17/22 15:00 Metanephrines, Fr/tot plasma Stat Discontinued Medications Amlodipine Besylate (Amlodipine 5 Mg Tablet) 5 mg PO NOW ONE Stop: 02/17/22 15:08 Last Admin: 02/17/22 15:51 Dose: 5 mg Documented By: SUAD Vital Signs Vital signs: Vital Signs - 8 hr 02/17/22 12:39 02/17/22 12:42 02/17/22 12:42 Pulse Rate 64 Respiratory Rate 21 17 Blood Pressure 200/103 H Pulse Oximetry 96 02/17/22 12:45 02/17/22 12:45 02/17/22 13:00 Pulse Rate 59 L 53 L Respiratory Rate 17 20 Blood Pressure 186/95 H Pulse Oximetry 95 94 02/17/22 13:01 02/17/22 13:01 02/17/22 13:15 Pulse Rate 53 L Respiratory Rate 18 Blood Pressure 160/90 H 163/92 H Pulse Oximetry 95 02/17/22 13:15 02/17/22 13:30 02/17/22 13:30 Pulse Rate 52 L 59 L Respiratory Rate 17 19 Blood Pressure 165/92 H Pulse Oximetry 93 95 02/17/22 13:45 02/17/22 13:45 02/17/22 14:00 Pulse Rate 54 L Respiratory Rate 21 Blood Pressure 155/86 H 164/85 H Pulse Oximetry 93 02/17/22 14:00 02/17/22 14:15 02/17/22 14:15 Pulse Rate 53 L 56 L Respiratory Rate 20 21 Blood Pressure 152/85 H Pulse Oximetry 95 95 02/17/22 14:31 02/17/22 14:33 02/17/22 14:33 Pulse Rate 58 L 56 L Respiratory Rate 19 19 Blood Pressure 178/88 H Pulse Oximetry 95 94 02/17/22 15:00 02/17/22 15:01 02/17/22 15:01 Pulse Rate 50 L 55 L Respiratory Rate 16 16 Blood Pressure 141/68 H Pulse Oximetry 92 92 02/17/22 15:30 02/17/22 15:30 02/17/22 16:00 Pulse Rate 54 L 51 L Respiratory Rate 19 17 Blood Pressure 155/108 H Pulse Oximetry 92 94 02/17/22 16:01 02/17/22 16:01 Pulse Rate 60 Respiratory Rate 21 Blood Pressure 174/81 H Pulse Oximetry 94 MDM - Chest Pain Lab Data Result diagrams: 02/17/22 10:26 02/17/22 10: Labs: Lab Results 02/17/22 02/17/22 02/17/22 Range/Units 10: 10: 10:26 WBC 4.8 (4.5-11.0) X10^3/uL RBC 4.34 (4.0-5.2) X10^6/uL Hgb 13.7 (12.0-16.0) g/dL Hct 41.3 (36-46) % MCV 95.2 (80-100) fL MCH 31.5 (26-34) PG MCHC 33.1 (30-36) % RDW 13.4 (11.6-14.8) % Plt Count 206 (150-400) X10^3/uL Neut % (Auto) 50.9 (50-75) % Lymph % (Auto) 37.1 (25-40) % [place] % (Auto) 10.0 (3-14) % Eos % (Auto) 1.0 L (2-4) % Baso % (Auto) 1.0 (0-2) % Neut # (Auto) 2500 (9485-4059) /uL Lymph # (Auto) 1800 (6701-2117) /uL [place] # (Auto) 500 (0-900) /uL Eos # (Auto) 0 (0-450) /uL Baso # (Auto) 0 (0-100) /uL PT 10.9 (10.1-12.7) SECONDS INR 1.0 (0.9-1.3) APTT 30 (26-36) SECONDS Sodium 143 (137-145) mmol/L Potassium 3.7 (3.4-5.1) mmol/L Chloride 104 (98-107) mmol/L Carbon Dioxide 28 (22-32) mmol/L BUN 13 (7-17) mg/dL Creatinine 0.44 L (0.52-1.04) mg/dL Estimated GFR > 60 (>60) mL/min BUN/Creatinine Ratio 29.5 H (6-22) Glucose 124 H (80-110) mg/dL Calcium 9.0 (8.4-10.2) mg/dL Magnesium 2.0 (1.6-2.3) mg/dL Total Bilirubin 0.8 (0.2-1.3) mg/dL AST 53 H (14-36) IU/L ALT 52 H (<35) IU/L Alkaline Phosphatase 73 (38-126) U/L Total Creatine Kinase 43 (30-135) U/L CK-MB (CK-2) TNP CK-MB (CK-2) Rel Index TNP Troponin I < 0.012 (0.01-0.034) ng/mL Total Protein 8.0 (6.3-8.2) g/dL Albumin 4.4 (3.5-5.0) g/dL Globulin 3.6 (1.7-4.1) g/dL Albumin/Globulin Ratio 1.2 (1.0-2.8) Lipase 69 (23-300) U/L 02/17/22 Range/Units 13:29 WBC (4.5-11.0) X10^3/uL RBC (4.0-5.2) X10^6/uL Hgb (12.0-16.0) g/dL Hct (36-46) % MCV (80-100) fL MCH (26-34) PG MCHC (30-36) % RDW (11.6-14.8) % Plt Count (150-400) X10^3/uL Neut % (Auto) (50-75) % Lymph % (Auto) (25-40) % [place] % (Auto) (3-14) % Eos % (Auto) (2-4) % Baso % (Auto) (0-2) % Neut # (Auto) (1216-8946) /uL Lymph # (Auto) (0506-0460) /uL [place] # (Auto) (0-900) /uL Eos # (Auto) (0-450) /uL Baso # (Auto) (0-100) /uL PT (10.1-12.7) SECONDS INR (0.9-1.3) APTT (26-36) SECONDS Sodium (137-145) mmol/L Potassium (3.4-5.1) mmol/L Chloride (98-107) mmol/L Carbon Dioxide (22-32) mmol/L BUN (7-17) mg/dL Creatinine (0.52-1.04) mg/dL Estimated GFR (>60) mL/min BUN/Creatinine Ratio (6-22) Glucose (80-110) mg/dL Calcium (8.4-10.2) mg/dL Magnesium (1.6-2.3) mg/dL Total Bilirubin (0.2-1.3) mg/dL AST (14-36) IU/L ALT (<35) IU/L Alkaline Phosphatase (38-126) U/L Total Creatine Kinase (30-135) U/L CK-MB (CK-2) CK-MB (CK-2) Rel Index Troponin I < 0.012 (0.01-0.034) ng/mL Total Protein (6.3-8.2) g/dL Albumin (3.5-5.0) g/dL Globulin (1.7-4.1) g/dL Albumin/Globulin Ratio (1.0-2.8) Lipase (23-300) U/L Imaging Data Chest x-ray: Radiologist's Impression: Close Chest X-Ray (Signed) Tamara Burgess - 02/17/22 Chest X-Ray (Signed) Omar Everett - 01/29/22 Telemetry Strips 01/29/22 Outside DI 07/09/21 Foot X-Ray (Signed) Omar Everett - 03/22/21 Ankle X-Ray (Signed) Omar Everett - 03/22/21 DI Result 12/08/20 DI Result 11/20/20 Telemetry Strips 10/22/20 Telemetry Strips 10/22/20 Abdomen/Pelvis CT (Addendum) Mukund Quinones - 10/22/20 Gastrografin Study (Signed) Mukund Quinones - 10/22/20 Launch?[address] [address] XRay Report Signed Patient: Amarilis Carpio MR#: [id number] : 1945 Acct:[id number] Age/Sex: 76 / F Date of Service: 02/17/22 Loc: ED Accession Number: [id number] ?? Procedure: XR chest 1V Ordering Provider: Rozina Cleveland D.O. PROCEDURE:? XR CHEST 1V ? INDICATIONS:? chest pain ? TECHNIQUE:? One view of the chest was acquired.? ? COMPARISON:? [facility], CR, XR CHEST 1V, 01/29/2022, 11:52. ? FINDINGS:? ? Surgical changes and devices:? Pacer device. ? Lungs and pleura:? Lungs are clear.? No pleural effusions or pneumothorax.? ? Mediastinum:? Mediastinal contours appear normal.? Heart size is mildly enlarged. ? Bones and chest wall:? No suspicious bony lesions.? Overlying soft tissues appear unremarkable.? ? IMPRESSION:? No acute pulmonary process. ? ? Dictated by: Tamara Burgess M.D. on 02/17/2022 at 10:47 ? ? Approved by: Tamara Burgess M.D. on 02/17/2022 at 10:47?? ECG Data Attestation: I personally reviewed and interpreted this ECG as follows: Interpretation: Sinus rhythm rate of 65 PA 186 QRS 90 QTC 422[address] No acute ST changes appreciated. EKG 2. Shows sinus bradycardia rate of 50 5p are 188 QRS 88 QTC of 420. No acute ST elevation. Nonspecific change. MDM Narrative Medical decision making narrative: This is a 76-year-old female with chest pain that has been intermittent seems to be associated with episodes of hypertension. Patient states her left arm felt not numb or tingly but heavy. She has had significant workup at early January with MRI of her brain, carotid ultrasounds, stress testing, she is currently wearing a monitor and was hypertensive upon arrival. As her blood pressures improved here in the department she is 160 systolic in the room her symptoms resolved. She does not have dynamic or acute changes. Her troponins are negative x2. I suspect they probably checked for pheochromocytoma she has some form of neuroendocrine cancer she is unsure of the exact form but urine and serum labs were ordered although these are outpatient. She does sound like she is trending upwards on her blood pressure home so plan to adjust her medications and spoke with Cardiology, Dr. Millan recommendations are appreciated. Patient's medication was adjusted she is tolerated well here in the department. Labs were sent unable to perform urine studies as patient needs either 24 hour collection or 1st thing in the morning but is following up with her oncologist Nico morning she can review as well as check her [facility] records. Discharge Plan Departure Patient Disposition: Home Clinical Impression: Chest pain Instructions: DI for Chest Pain Activity Restrictions/Additional Instructions: Please follow-up with cardiology. I spoke with Dr. Millan today, they would like you to follow-up, please call for an appointment. You can call tomorrow or Monday morning. You do have a serum as well as urine metanephrines, catecholamines and VMA pending these are send out labs. They are an unlikely cause of your hypertensive episodes and may have already been checked at but I do not have these results available today. He does recommend adding amlodipine 5 mg daily to your medication. Please continue your losartan twice daily and your metoprolol. Prescription sent to [facility]. Please return for new or worsening symptoms, passing out, recurrent chest pain, shortness of breath, persistent vomiting, increasing swelling in her extremities or other new or concerning changes. Prescriptions: New amlodipine 5 mg tablet 5 mg PO DAILY Qty: 30 0RF No Action metoprolol tartrate 25 mg tablet 25 mg PO DAILY acetaminophen 325 mg Tablet 325 mg PO Q6HR PRN (Reason: Fever/Mild Pain (1-3)) Qty: 60 0RF gabapentin 100 mg Capsule 200 mg PO BEDTIME Qty: 10 0RF celecoxib [Celebrex] 100 mg Capsule 100 mg PO BID Qty: 20 0RF metoprolol succinate 25 mg tablet extended release 24 hr 25 mg PO DAILY Qty: 30 0RF Referrals: David Daly MD [Primary Care Provider] - David Millan MD [Physician] - Visit Report Forms: Patient Portal/API
[2022-02-17 14:05] LABS: Troponin I < 0.012 ng/mL (0.01-0.034)
[2022-02-17] MEDS: AMLODIPINE 5 MG TABLET PO (15:51)
[2022-02-21 14:00] LABS: Creatinine, Random Urine 56.9 mg/dL (Not Estab.)
[2022-02-22 13:17] LABS: Metanephrine,Plasma 40.3 pg/mL (0.0-88.0)
== END 2022-02-17 16:16 | disposition home or self-care (01) ==
PROVIDERS: Emergency Provider Emergency Medicine; PCP Internal Medicine
DX: R07.9 Chest pain, unspecified (principal); I10 Essential (primary) hypertension
CPT/HCPCS: 36415; 71045; 80053; 82384; 82550; 82570; 83690; 83735; 83835; 84484; 85025; 85610; 85730; 93005; 99284

== ENCOUNTER → 2023-06-30 13:45 | Outpatient (CLI) | payer MEDICARE, SELFPAY ==
[2020-11-20 15:28] VITALS: BMI 25.8
--- NOTE | 2023-06-30 13:47 | DI.ECHO.S_ITS ---
[facility]---------+ [facility] +---------+ : : [address] [place] : : : : [id number] : : : : Phone: [phone]+ Echocardiogram Report + + :Name: CORAZON RICH Study Date: 06/30/2023 Height: 68 in : :[facility] ReadingLocation: Weight: 180 lb : : Gender: Female BSA: 2.0 m2 : :: 1945 Age: 78 yrs BP: 140/86 mmHg: :Reason For Study: ASCENDING AORTA ENLARGEMENT : :Ordering Physician: APPLE, : :SHELLEY Performed By: Cha Gomes : :Referring: SHELLEY HERNADEZ : + + Interpretation Summary 1) Normal left ventricular size, wall motion, and systolic function (EF 55- 60%). 2) Normal right ventricular size and function. 3) The interatrial septum bows toward right atrium consistent with elevated left atrial pressure. 4) There is mild aortic regurgitation. There is mild aortic regurgitation. 5) No prior Echo available for comparison. Procedure: A two-dimensional transthoracic echocardiogram with color flow and Doppler was performed. The study quality was technically adequate. There is no prior echocardiogram noted for this patient. The patient was in sinus bradycardia with heart rates between 50-60 bpm during the exam. Left Ventricle: The left ventricle is normal in size. Left ventricular wall thickness is at the upper limits of normal. The ejection fraction is estimated to be 55-60%. Left ventricular systolic function appears normal without focal wall motion abnormalities. Diastolic parameters suggest a relaxation abnormality of the left ventricle, consistent with probable normal filling pressures. Right Ventricle: The right ventricle is normal in size and function. Atria: The left atrium is moderately dilated. Right atrial size is normal. The atrial septum is aneurysmal. The interatrial septum bows toward right atrium consistent with elevated left atrial pressure. Mitral Valve: The mitral valve is normal in structure and function. There is mild mitral regurgitation. Aortic Valve: The aortic valve is trileaflet. The aortic valve opens well. There is no aortic valve stenosis. There is mild aortic regurgitation. Tricuspid Valve: The tricuspid valve is normal in structure and function. There is mild tricuspid regurgitation. The right ventricular systolic pressure is estimated to be at least 24 mmHg based on an estimated right atrial pressure of 3 mm Hg. Pulmonic Valve: The pulmonic valve leaflets are thin and pliable; valve motion is normal. There is trace pulmonic regurgitation. Great Vessels: The aortic root is normal size. The ascending aorta is at the upper limits of normal in size. The IVC is of normal diameter and collapses greater than 50% with a sniff. This suggests a low right atrial pressure of 3 mm Hg. Pericardium/ Pleura There is no pericardial effusion. There is no pleural effusion. MMode/2D Measurements & Calculations LVIDd: 4.6 cm LVOT diam: 2.2 cm LVIDs: 3.0 cm Ao root diam: 3.2 cm FS: 35.2 % asc Aorta Diam: 4.0 cm IVSd: 1.1 cm Ao Arch Diam (Prox Trans): 3.1 cm LVPWd: 1.0 cm LV acosta. diameter/BSA (cm/m^2): 2.4 LV sys. diameter/BSA (cm/m^2): 1.5 LA A2 area: 28.2 cm2 RA long axis: 5.7 cm LA A4 area: 24.8 cm2 RA area: 18.2 cm2 LA length (vol): 6.1 cm RA vol: 49.6 ml LA vol: 97.6 ml RA : 25.4 ml/m2 LA vol index: 49.9 ml/m2 IVC diam: 1.4 cm RVD1 (basal): 3.1 cm RVD2 (mid): 2.7 cm TAPSE: 1.7 cm Doppler Measurements & Calculations Ao V2 max: 135.1 cm/sec LVOT Max Maurisio: 76.9 cm/sec Ao V2 mean: 97.2 cm/sec LV V1 max P.4 mmHg Ao max P.4 mmHg LV V1 VTI: 18.7 cm Ao mean P.2 mmHg LILIA(I,D): 2.2 cm2 Ao V2 VTI: 31.6 cm LILIA(V,D): 2.2 cm2 sev ratio: 0.59 LILIA indexed to BSA (cm^2/m^2): 1.1 AI P1/2t: 616.4 msec AI dec slope: 209.5 cm/sec2 MV E max maurisio: 44.4 cm/sec TR max maurisio: 228.6 cm/sec MV A max maurisio: 53.5 cm/sec TR max P.9 mmHg MV E/A: 0.83 PA V2 max: 61.5 cm/sec Med Peak E' Maurisio: 5.5 cm/sec PA V2 mean: 46.1 cm/sec E/E' med: 8.1 PA mean P.91 mmHg Lat Peak E' Maurisio: 7.1 cm/sec PA pr(Accel): 1.9 mmHg E/E' lat: 6.2 E/e' average: 7.1 MV dec time: 0.38 sec SV(LVOT): 71.0 ml Reading Physician:04:02 PM
== END ==
LOC: ECHO 13:45
PROVIDERS: PCP Family Medicine; Referring Provider Internal Medicine Cardiovascular Disease; Visit Provider Internal Medicine Cardiovascular Disease
DX: I77.89 Other specified disorders of arteries and arterioles (principal); I08.3 Combined rheumatic disorders of mitral, aortic and tricuspid valves
CPT/HCPCS: 93306

== ENCOUNTER → 2023-11-23 14:44 | Outpatient (CLI) | payer MEDICARE, SELFPAY ==
[2020-11-20 15:28] VITALS: BMI 25.8
== END ==
PROVIDERS: PCP Family Medicine; Visit Provider Physician Assistant
DX: R35.0 Frequency of micturition (principal)
CPT/HCPCS: 87077; 87086; 87186

== ENCOUNTER → 2023-12-28 10:24 | Outpatient (CLI) | payer MEDICARE, SELFPAY ==
[2020-11-20 15:28] VITALS: BMI 25.8
--- NOTE | 2023-12-28 10:31 | DI.RAD.S_ITS ---
PROCEDURE: XR ANKLE LT MIN 3V INDICATIONS: L ankle pain TECHNIQUE: 3 views of the ankle were acquired. COMPARISON: [facility], CR, XR ANKLE LT MIN 3V, 03/22/2021, 11:08. FINDINGS: Bones: There are no osseous abnormalities. Tibiotalar and talocalcaneal joints: Normal in width and alignment without arthritic change. Soft tissues: Moderate diffuse soft tissue swelling noted. IMPRESSION: Moderate diffuse soft tissue swelling. Dictated by: Juan Carlos Frausto M.D. on 12/29/2023 at 9:17 Approved by: Juan Carlos Frausto M.D. on 12/29/2023 at 9:18
== END ==
PROVIDERS: PCP Family Medicine; Referring Provider Family Medicine; Visit Provider Family Medicine
DX: S82.892A Other fracture of left lower leg, initial encounter for closed fracture (principal); M25.572 Pain in left ankle and joints of left foot; M79.89 Other specified soft tissue disorders; X58.XXXA Exposure to other specified factors, initial encounter
CPT/HCPCS: 73610

== ENCOUNTER 2024-11-28 12:52 | Emergency (ER) | payer MEDICARE, SELFPAY ==
[2020-11-20 15:28] VITALS: BMI 25.8
[2024-11-28] VITALS (13 sets, daily range): BP systolic 160–207; BP diastolic 79–118; PULSE 57–83; RESP 17–24; TEMP 36.9; O2SAT 94–98; BMI 26.6
--- NOTE | 2024-11-28 13:11 | EKG_ITS ---
[place] [id number] [place] [id number] Test Date: 2024-11-28 Pat Name: Amarilis Carpio Department: Room: Gender: Female [employer] Consultant: ANDREA : 1945 Requested By: Order Number: [id number] Reading MD: Juan Carlos Donis MD Measurements Intervals [place] Rate: 77 P: 51 NC: 188 QRS: -24 QRSD: 92 T: 36 QT: 382 QTc: 432 Interpretive Statements Sinus rhythm with premature atrial complexes Moderate voltage criteria for LVH, may be normal variant ( R in aVL , Mika product ) Possible Anterior infarct , age undetermined Electronically Signed On 12-02-2024 7:43:45 PDT by Juan Carlos Donis MD
--- NOTE | 2024-11-28 13:21 | DI.RAD.S_ITS ---
PROCEDURE: XR CHEST 1V INDICATIONS: Chest Pain TECHNIQUE: One view of the chest was acquired. COMPARISON: [facility], CR, XR CHEST 1V, 02/17/2022, 10:22. FINDINGS: Surgical changes and devices: None. Lungs and pleura: Lungs are clear. No pleural effusions or pneumothorax. Mediastinum: Mediastinal contours appear normal. Heart size is enlarged. Bones and chest wall: No suspicious bony lesions. Overlying soft tissues appear unremarkable. IMPRESSION: No acute cardiopulmonary pathology. Dictated by: Dimitri Estrada M.D. on 11/28/2024 at 14:09 Approved by: Dimitri Estrada M.D. on 11/28/2024 at 14:10
--- NOTE | 2024-11-28 13:27 | ED.GENADULT ---
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 Patient presents states she felt sort of confused and dizzy, had some chest pain and shortness of breath this morning that resolved. She notes she was quite hypertensive yesterday we will having an episode of epistaxis was seen at [facility]. Report shows that she had Afrin bleeding stopped after direct pressure was discharged. Blood pressures look like they were about 160 systolic. Patient states she has not had any syncope. She notes little bit of headache states it has improved. No fevers or chills. No nausea or vomiting. No persistent chest pain or pressure. She has a little bit of diarrhea in the mornings but this has been longstanding. Denies dysuria urgency or frequency. No new swelling in extremities. Patient notes she is on losartan 50 mg twice daily, amlodipine 5 mg daily propranolol extended release 60 mg daily her physician had her stop her diuretic and potassium supplementation a week or 2 ago. She is unsure why. She does take an aspirin 81 mg daily. States she has had prior appendectomy, hysterectomy cholecystectomy secondary to medications that she receives to help control her metastases for her neuroendocrine tumor. She states no Mets to the brain. She gets surveillance annually has not had any changes. Denies any allergies to drugs. No tobacco 1 or 2 alcoholic drinks nightly, no recreational drugs. Her primary care is Dr. Rubio. Her production control pegboard clerk is Dr. Hernadez. She follows with oncology in [place]. Related Data Home Medications ?Medication ?Instructions ?Recorded ?Confirmed aspirin 81 mg chewable tablet 81 mg PO DAILY 11/23/23 12/28/23 chlorthalidone 25 mg tablet 12.5 mg PO QAM 11/23/23 12/28/23 potassium chloride 10 mEq 10 meq PO BID 11/23/23 12/28/23 tablet,extended release propranolol 60 mg capsule,24 60 mg PO DAILY 11/23/23 12/28/23 hr,extended release biotin PO 12/28/23 12/28/23 cholecalciferol (vitamin D3) 50 50 mcg PO DAILY 12/28/23 12/28/23 mcg (2,000 unit) capsule cranberry fruit concentrate PO 12/28/23 12/28/23 lanreotide SUBCUT 12/28/23 12/28/23 Previous Rx's ?Medication ?Instructions ?Recorded amlodipine 5 mg tablet 5 mg PO DAILY #90 tabs 10/08/24 losartan 50 mg tablet 50 mg PO BID #180 tabs 10/21/24 Allergies Allergy/AdvReac Type Severity Reaction Status Date / Time No Known Drug Allergies Allergy Verified 11/28/24 13:13 Review of Systems Review of Systems ROS Unobtainable: All systems reviewed & are unremarkable except as noted in HPI and below Patient History Medical History Hearing loss Left ankle sprain Contusion of face Pes anserinus bursitis Medicare annual wellness visit, subsequent Well adult exam Family history of colon cancer Atypical nevi Stomach ulcer History of ectopic Hypertension Surgical History History of hysterectomy Hx of appendectomy Social History household members: none Smoking Status: Never smoker alcohol intake: current Smoking Status: Never smoker alcohol intake frequency: holidays/special occasions only Alcohol type: wine Exam Narrative Exam Narrative: GEN: well nourished, well appearing female, alert and oriented x 3, patient appears to be in mild distress. HEENT: Atraumatic, pupils are equal round reactive to light, extraocular movements are intact, nares are clear, there is no conjunctival pallor. Throat is clear without any exudates, erythema, tonsillar enlargement or uvular deviation, no facial droop HEART: Regular rate and rhythm without murmur, clicks, rubs. Pulses are equal in upper and lower extremities LUNGS:Lungs clear to auscultation, no wheezes, rales, crackles, chest moves symmetrically ABD:bowel sounds normal, soft, non-tender, no guarding, rebound, rigidity, no masses noted, no hepatosplenomegaly :No CVA tenderness MSCL: Non-tender, no muscle atrophy, muscles strength 5/5 upper and lower extremities, full range of motion, normal gait NEURO:CN 2-12 intact, sensation normal Initial Vital Signs Initial Vital Signs: Vital Signs Pulse Rate 79 11/28/24 13:12 Pulse Oximetry 94 11/28/24 13:12 Course Orders Ordered: ED Orders 11/28/24 13:19 Complete Blood Count AUTO DIFF Stat Comprehensive Metabolic Panel Stat Lipase Stat Magnesium Stat NT-proBNP (BNP-Adult 18+) Stat PTT Partial Thromboplastin Surendra Stat Prothrombin Time INR Stat Troponin & CK Cardiac Panel Stat 11/28/24 13:21 XR chest 1V Stat EKG-12 Lead Stat 11/28/24 13:40 CT head/brain wo con Stat 11/28/24 15:20 Trop I [Troponin I] Stat Discontinued Medications Aspirin (Aspirin 81 Mg Chew Tab) 324 mg PO NOW ONE Stop: 11/28/24 13:22 Last Admin: 11/28/24 13:28 Dose: 243 mg Documented By: KELLI Sodium Chloride (Normal Saline 0.9%) 500 mls @ 1,000 mls/hr IV BOLUS ONE Stop: 11/28/24 14:10 Last Infusion: 11/28/24 14:30 Dose: Infused Documented By: Admin: 11/28/24 13:54 Dose: 1,000 mls/hr Documented By: KELLI Vital Signs Vital signs: Vital Signs - 8 hr 11/28/24 13:12 11/28/24 13:13 11/28/24 13:30 Temperature 98.5 F Pulse Rate 79 83 69 Respiratory Rate 17 23 Blood Pressure 207/118 H Pulse Oximetry 94 98 94 Oxygen Delivery Method Room Air 11/28/24 13:31 11/28/24 13:31 11/28/24 13:58 Temperature Pulse Rate 80 Respiratory Rate 23 Blood Pressure 191/97 H 193/83 H Pulse Oximetry 95 Oxygen Delivery Method 11/28/24 13:58 11/28/24 14:00 11/28/24 14:00 Temperature Pulse Rate 72 64 Respiratory Rate 22 24 Blood Pressure 177/84 H Pulse Oximetry 96 96 Oxygen Delivery Method 11/28/24 14:30 11/28/24 14:31 11/28/24 14:31 Temperature Pulse Rate 58 L 59 L Respiratory Rate 19 20 Blood Pressure 166/81 H Pulse Oximetry 97 95 Oxygen Delivery Method Room Air 11/28/24 15:00 11/28/24 15:00 11/28/24 15:30 Temperature Pulse Rate 64 58 L Respiratory Rate 17 18 Blood Pressure 189/89 H Pulse Oximetry 96 94 Oxygen Delivery Method 11/28/24 15:31 11/28/24 15:31 11/28/24 16:00 Temperature Pulse Rate 58 L Respiratory Rate 17 Blood Pressure 165/79 H 160/79 H Pulse Oximetry 95 Oxygen Delivery Method 11/28/24 16:00 11/28/24 16:30 11/28/24 16:30 Temperature Pulse Rate 57 L 59 L Respiratory Rate 18 22 Blood Pressure 170/79 H Pulse Oximetry 96 96 Oxygen Delivery Method Medical Decision Making Lab Data 11/28/24 13:19 11/28/24 13:19 Labs: Lab Results 11/28/24 11/28/24 Range/Units 13:19 15:20 WBC 5.2 (4.5-11.0) X10^3/uL RBC 4.40 (4.0-5.2) X10^6/uL Hgb 14.1 (12.0-16.0) g/dL Hct 41.9 (36-46) % MCV 95.2 (80-100) fL MCH 32.0 (26-34) PG MCHC 33.6 (30-36) % RDW 12.7 (11.6-14.8) % Plt Count 258 (150-400) X10^3/uL Neut % (Auto) 43.8 L (50-75) % Lymph % (Auto) 41.2 H (25-40) % Baker % (Auto) 11.8 (3-14) % Eos % (Auto) 2.0 (2-4) % Baso % (Auto) 1.2 (0-2) % Neut # (Auto) 2300 (8981-4453) /uL Lymph # (Auto) 2100 (1272-8210) /uL Baker # (Auto) 600 (0-900) /uL Eos # (Auto) 100 (0-450) /uL Baso # (Auto) 100 (0-100) /uL PT 10.9 (9.4-12.5) SECONDS INR 1.0 (0.9-1.3) APTT 30 (25.1-36.5) SECONDS Sodium 141 (137-145) mmol/L Potassium 3.8 (3.4-5.1) mmol/L Chloride 107 (98-107) mmol/L Carbon Dioxide 23 (22-32) mmol/L BUN 11 (7-17) mg/dL Creatinine 0.51 L (0.52-1.04) mg/dL Estimated GFR > 60 (>60) mL/min BUN/Creatinine Ratio 21.6 (6-22) Glucose 111 H (70-99) mg/dL Calcium 9.1 (8.4-10.2) mg/dL Magnesium 1.8 (1.6-2.3) mg/dL Total Bilirubin 1.0 (0.2-1.3) mg/dL AST 81 H (14-36) IU/L ALT 54 H (<35) IU/L Alkaline Phosphatase 69 (38-126) U/L Total Creatine Kinase 41 (30-135) U/L Troponin I < 0.012 < 0.012 (0.01-0.034) ng/mL NT-Pro-B Natriuret Pep 438 (<450) pg/mL Total Protein 8.4 H (6.3-8.2) g/dL Albumin 4.4 (3.5-5.0) g/dL Globulin 4.0 (1.7-4.1) g/dL Albumin/Globulin Ratio 1.1 (1.0-2.8) Lipase 51 (23-300) U/L ECG Data Attestation: I personally reviewed and interpreted this ECG as follows: Interpretation: Sinus rhythm premature atrial complexes rate of 77 MO 188 QRS of 92 QTC of 432, no acute ST elevation depression noted. MDM Narrative Medical decision making narrative: EKG sinus rhythm premature atrial complexes rate of 77, no prior for comparison. Patient had prior 02/17/22 nonspecific change. Labs show normal white count hemoglobin and platelets, PT and INR are normal. Electrolytes BUN creatinine are normal glucose is 111 AST is 81 ALT is 54 bilirubin is normal. Lipase is 51 troponins less than 0.012 with a BNP of 438. Repeat troponin is less than 0.012. Head CT no acute intracranial pathology age-related volume loss moderate white matter chronic small-vessel ischemic changes. Hyperdense material within right maxillary sinus likely represents inspissated secretions CXR no acute cardiopulmonary pathology. CT does show change of the right maxillary sinus patient did have epistaxis yesterday with a quite a bit of bleeding this maybe leftover hyperdense material from this. patient has fluids. Patient's blood pressure did improve not totally normal. Discussed findings with the patient's notes she quit her diuretic recently. Discussed that have her check her blood pressures at home if she is still persistently elevated talk with the physician about adjusting her medication. She was not checking it prior to her ER visit at [facility]. Discharge Plan Departure Patient Disposition: Home Clinical Impression: Hypertension Qualifiers: Hypertension type: primary hypertension Qualified Code(s): I10 - Essential (primary) hypertension Activity Restrictions/Additional Instructions: Follow up with primary care and/or your production control pegboard clerk. I would recommend you continue your home medications as prescribed. If you are having persistently elevated blood pressure talk with your physician about increasing your medication. I would recommend checking your blood pressure at home and keeping a log if you have a cuff available. Please return if you have recurrent symptoms, severe headaches, changes to mentation, difficulty with movement or speech, new or worsening chest pain or shortness of breath, persistent vomiting new swelling of your extremities or other new or concerning changes. Prescriptions: No Action amlodipine 5 mg tablet 5 mg PO DAILY Qty: 90 0RF losartan 50 mg tablet 50 mg PO BID Qty: 180 3RF lanreotide SUBCUT Rx Instructions: 0.2 mL (60 mg) under the skin biotin PO cholecalciferol (vitamin D3) 50 mcg (2,000 unit) capsule 50 mcg PO DAILY cranberry fruit concentrate PO aspirin 81 mg tablet,chewable 81 mg PO DAILY propranolol 60 mg capsule,extended release 24 hr 60 mg PO DAILY potassium chloride 10 mEq tablet extended release 10 meq PO BID chlorthalidone 25 mg tablet 12.5 mg PO QAM Referrals: Hans Rubio DO [Primary Care Provider, Family Practice] Stand Alone Forms: Patient Portal/API
[2024-11-28 13:28] LABS: Add Manual Diff / Slide Review NO; Hematocrit 41.9 % (36-46); Hemoglobin 14.1 g/dL (12.0-16.0); Lymphocytes Absolute Auto 2100 /uL (1100-4500); Mean Corpuscular HGB Conc 33.6 % (30-36); Mean Corpuscular Hemoglobin 32.0 PG (26-34); Mean Corpuscular Volume 95.2 fL (80-100); Platelet Count 258 X10^3/uL (150-400)
[2024-11-28] MEDS: ASPIRIN 81 MG CHEW TAB 324 MG PO (13:28)
[2024-11-28 13:38] LABS: INR 1.0 (0.9-1.3); Prothrombin Time 10.9 SECONDS (9.4-12.5)
[2024-11-28 13:40] LABS: PTT Partial Thromboplastin Tim 30 SECONDS (25.1-36.5)
--- NOTE | 2024-11-28 13:40 | DI.CT.S_ITS ---
PROCEDURE: CT HEAD/BRAIN WO CON INDICATIONS: velasco, dizzy, elevated BP, hx neuroendrocrine tumor. no brain m TECHNIQUE: Noncontrast 4.5 mm thick angled axial sections acquired from the foramen magnum to the vertex, with coronal and sagittal reformats. For radiation dose reduction, the following was used: automated exposure control, adjustment of mA and/or kV according to patient size. COMPARISON: None. FINDINGS: Image quality: Diagnostic. CSF spaces: Basal cisterns are patent. No extra-axial fluid collections. The ventricles are symmetric in size and shape. Brain: No intracranial bleeds or mass effect. There is cerebral volume loss, with resultant ventricular and sulcal prominence. There are periventricular and deep white matter chronic small vessel ischemic changes. There is intracranial internal carotid artery atherosclerosis. Skull and face: Calvarium and visualized facial bones appear intact, without suspicious lesions. Sinuses: Hyperdense material within dependent portion of right maxillary sinus is seen. Bilateral mastoid air cells are well aerated. IMPRESSION: 1. No acute intracranial pathology. 2. Age related volume loss and moderate white matter chronic small vessel ischemic changes. 3. Hyperdense material within right maxillary sinus likely represent inspissated secretion. Dictated by: Dimitri Estrada M.D. on 11/28/2024 at 14:02 Approved by: Dimitri Estrada M.D. on 11/28/2024 at 14:04
[2024-11-28 13:44] LABS: Alanine Aminotransferase 54 IU/L (<35); Albumin 4.4 g/dL (3.5-5.0); Albumin Globulin Ratio 1.1 (1.0-2.8); Alkaline Phosphatase 69 U/L (38-126); Blood Urea Nitrogen 11 mg/dL (7-17); Calcium 9.1 mg/dL (8.4-10.2); Carbon Dioxide 23 mmol/L (22-32); Chloride 107 mmol/L (98-107); Creatine Kinase 41 U/L (30-135); Estimated Glomerular Filt Rate > 60 mL/min (>60); Globulin 4.0 g/dL (1.7-4.1); Glucose 111 mg/dL (70-99); HEMOLYSIS 16 (0-50); Lipase 51 U/L (23-300); Magnesium 1.8 mg/dL (1.6-2.3); Potassium 3.8 mmol/L (3.4-5.1); Sodium 141 mmol/L (137-145); Total Protein 8.4 g/dL (6.3-8.2)
[2024-11-28] MEDS: SODIUM CHLORIDE 0.9% 500 ML 1000 ML IV (13:54)
[2024-11-28 13:56] LABS: NT-proBNP (BNP-Adult 18+) 438 pg/mL (<450); Troponin I < 0.012 ng/mL (0.01-0.034)
--- NOTE | 2024-11-28 14:05 | PC.NURSE ---
Pt reports chest pressure almost gone 1-2/10. Lightheaded, worse with movement. Stopped taking water pill and potassium about 2 weeks ago per cardiology instructions, but she can't remember why they stopped it. Reports propranolol gives her diarrhea x 1 year.
[2024-11-28 16:01] LABS: Troponin I < 0.012 ng/mL (0.01-0.034)
== END 2024-11-28 16:50 | disposition home or self-care (01) ==
PROVIDERS: Emergency Provider Emergency Medicine; PCP Family Medicine
DX: I10 Essential (primary) hypertension (principal); R42 Dizziness and giddiness; R07.9 Chest pain, unspecified; R06.02 Shortness of breath
CPT/HCPCS: 36415; 70450; 71045; 80053; 82550; 83690; 83735; 83880; 84484; 85025; 85610; 85730; 93005; 96360; 99284